=== PATIENT | male | born 1960 | race Caucasian/White ===

== ENCOUNTER 2019-06-06 15:16 | Inpatient (IN) | payer MEDICARE ==
[~2019-06-06] VITALS: Ht 177.8 cm; Wt 83.6 kg
--- NOTE | ~2019-06-06 | HEMODYNAMI ---
PATIENT:SIM LOPEZ JR MEDICAL RECORD: [id number] : 62 [facility] [id number] ADMISSION DATE: 06/06/19 Generatedon:06/23/201910:10 Patient name: SIM LOPEZ Patient #: [id number] SSN: DO B: 1960 Date of study: 06/23/2019 Page: Of Hemodynamic Procedure Report Patient Data Patient Demographics Procedure consent was obtained First Name: SIM Gender: Male Last Name: JESSICA Suffix: Patient #: [id number] : 1960 Age: 59 year(s) Accession #: Race: Unknown [id number] Additional ID: [id number] Contact details Address: [place] [address] State: [place] City: [place] Zip code: [address] Past Medical History Allergies Allergen Reaction Date Comments Reported Sulfa drugs 06/08/2019 Sulfa drugs 06/16/2019 Admission Admission Data Admission Date: 06/06/2019 Admission Time: 16:57 Room #: [facility] Height (in.): 70 BSA: 1.9 (m2) Height (cm.): 177.8 BMI: 22.96 (kg/m2) Weight (lbs.): 160 Weight (kg.): 72.57 Procedure Procedure Types Cath Procedure Peripheral Cath Diagnostic Procedure Wood Tool Maker Peripheral Procedures Nephro Nephrostomy Tube Exchange Procedure Description Procedure Date Procedure Date: 06/23/2019 Procedure Start Time: 9:42 Procedure Staff Name Function Sim Sifuentes MD Performing Physician Reshma Connors RT Soil Sampler Denice Fuentes RN Nurse Ric Chawla RT Scrub Procedure Data Cath Procedure Fluoroscopy Diagnostic fluoroscopy Total fluoroscopy Time: 4.9 time: 4.9 min min Diagnostic fluoroscopy Total fluoroscopy dose: 63 dose: 63 mGy mGy Contrast Material Contrast Material Type Amount (ml) Isovue 300 30 Diagnostic catheters Device Type Used For End Catheter Placement Merit Impress KA 2 5Fr 40CM catheter ([id number]) Procedure Medications Medication Administration Route Dosage unlisted medication 1 Hemodynamics Rest BSA: 1.9 (m2) O2 Consumption: Estimated: 214.3 (ml/min) O2 Consumption indexed: Estimated:112.79 (ml/min/m) Heart Rate: 56 (bpm) Snapshots Pre Cath Intra NCS Post Cath Vital Signs Time Heart Resp SPO2 etCO2 NIBP Rhythm Pain Sedation Rate (ipm) (%) (mmHg) (mmHg) Status Level (bpm) 9:35:22 24 99 32.4 93/55(69) NSR 0 (11) 10(A) , No pain 9:39:23 10 31.7 87/52(66) NSR 0 (11) 10(A) , No pain 9:43:23 55 11 30.9 86/47(63) NSR 0 (11) 10(A) , No pain 9:47:23 57 12 30.9 76/46(55) NSR 0 (11) 10(A) , No pain 9:50:52 56 12 30.9 78/49(61) NSR 0 (11) 10(A) , No pain 9:54:06 56 12 30.2 79/48(59) NSR 0 (11) 10(A) , No pain 9:58:03 10 100 30.2 80/47(60) NSR 0 (11) 10(A) , No pain 10:02:01 11 29.4 79/47(57) NSR 0 (11) 10(A) , No pain 10:05:55 52 10 29.4 85/45(63) NSR 0 (11) 10(A) , No pain 10:09:54 53 10 30.2 86/45(66) NSR 0 (11) 10(A) , No pain Medications Time Medication Route Dose Verified Delivered Reason Notes Effectivene ss by by 9:40:07 cefepime ivpb 1gm Sim Fuentes RN physician Procedure Log Time Note 8:38:21 Patient Height : 70 inches 8:38:21 Patient Weight : 160 lbs 9:10:39 Time tracking: Regular hours (M-F 7:00 - 5:00) 9:10:54 Plan of Care:Hemodynamics will remain stable., Cardiac rhythm will remain stable., Comfort level will be maintained., Respiratory function will remain adequate., Patient/ family verbilizes understanding of procedure., Procedure tolerated without complication., Recovers from procedure without complications.. 9:11:01 Patient received from Med/Surg to IR Alert and oriented. Tansferred to table in Prone position. 9:11:10 Signed procedure consent form obtained from guardian. 9:11:20 H&P Date Dictated: 06/23/2019 Within 30 days and on chart.. 9:11:29 - 9:11:32 ----Pre-sedation anethsthesia assessment.----SEE ANESTHESIA NOTES FOR MONITORING OF PATIENT DURING PROCEDURE 9:12:04 Use device set IR Diagnostic 9:12:08 Tegaderm 4 x 4 (1626W) opened to sterile field. 9:12:09 Sterile Angiographic Pack opened to sterile field. 9:12:09 Bag Decanter (2002S) opened to sterile field. 9:12:45 SARAHI .035 15cm wire ([id number]) opened to sterile field. 9:12:46 STOPCOCK 3-Way Large Bore ([id number]) opened to sterile field. 9:13:05 - 9:34:22 Vital chart was started 9:40:07 cefepime 1gm ivpb was administered by Denice Fuentes RN; Per physician; Verbal order read back and verified. 9:41:41 ECG and BP/O2 sat monitors applied to patient. 9:41:42 Baseline sample Acquired. 9:41:44 Full Disclosure recording started 9:41:45 - 9:41:50 Physician arrived 9:41:50 --------ALL STOP TIME OUT------ 9:41:52 Final Timeout: patient, procedure, and site verified with staff and physician. All members of the team are in agreement. 9:42:09 Fire Safety Assessment: A--An alcohol-based skin anteseptic being used preoperatively., C--Open oxygen or nitrous oxide is being used. 9:42:16 Procedure started. 9:42:27 Local anesthetic to Left Renal area with Lidocaine 1% by Sim Sifuentes MD.INITIAL ACCESS ONLY 9:47:35 ROADRUNNER .035 260 glide wire (F68138) opened to sterile field. 9:53:12 GLIDE WIRE GOLD .018 (SG6082) opened to sterile field. 9:53:26 A BlackStratus KA 2 5Fr 40CM catheter (30932MV0) was advanced over the wire and used for . 9:54:51 COPILOT Valve Control (1580461) opened to sterile field. 9:57:47 10FR Nephroureterostomy Stent (W56090) opened to sterile field and placed. 9:58:14 BAG, DRAINAGE EMPTY 600ML W/EMMA (MFH631) opened to sterile field. 10:05:40 Procedure ended.(Physican Out) 10:05:52 Fluoroscopy time 04.90 minutes. 10:05:57 Fluoroscopy dose: 63 mGy 10:05:57 Flurop Dose total: 63 10:06:24 Contrast amount:Isovue 300 30ml. 10:06:35 Procedure and supply charges have been captured, reviewed, submitted an d are correct. 10:09:52 Report given to Med/Surg. 10:10:19 Vital chart was stopped Device Usage Item Name Manufacture Quantity Catalog Hospital Part Current M inimal Lot# / Number Charge Number Stock Stock Serial# Code Tegaderm 4 x 4 3M 1 [id number] 976761 232432 5 (1626W) Sterile Cardinal 1 [id number] 436104 348274 5 Angiographic Pack Health Bag Decanter Microtek 1 498768 43107 192188 5 () [employer] SARAHI .035 15cm Cook Medical 1 E16866 733004 580573 5 wire (V31262) STOPCOCK 3-Way Cook Medical 1 E68190 670000 5779 561229 5 [id number] Large Bore (G56951) ROADRUNNER .035 Cook Medical 1 V75143 500614 614549 567577 5 260 glide wire (J86281) GLIDE WIRE GOLD Terumo 1 EM1606 414869 386653 5 199952 .018 (BF4387) Merit Impress KA 2 Merit 1 [id number] 389352 551599 5 5Fr 40CM catheter Medical (51956CT1) COPILOT Valve Potts 1 4232338 675059 107370 365813 5 Control (1468398) Vascular 10FR Cook Medical 1 H06283 070594 591189 345773 5 Nephroureterostomy Stent (P47419) BAG, DRAINAGE Merit 1 NPD843 646212 286704 805622 5 EMPTY 600ML W/EMMA Medical (RUV413) Signature Audit [place] Stage Time Signature Unsigned Intra-Procedure 06/23/2019 Reshma Connors 10:10:15 AM RT(R) [facility] [address] [facility] [place] [address]
--- NOTE | ~2019-06-06 | HEMODYNAMI ---
PATIENT:SIM LOPEZ JR MEDICAL RECORD: [id number] : 62 [facility] AD[facility] DATE: 06/06/19 Generatedon:06/08/201914:09 Patient name: SIM LOPEZ Patient #: [id number] SSN: DO B: 1960 Date of study: 06/08/2019 Page: Of Hemodynamic Procedure Report Patient Data Patient Demographics Procedure consent was obtained First Name: SIM Gender: Male Last Name: JESSICA Suffix: Patient #: [id number] : 1960 Age: 59 year(s) Accession #: Race: Unknown [id number] Additional ID: [id number] Contact details Address: [place] [address] State: [place] City: [place] Zip code: [address] Past Medical History Allergies Allergen Reaction Date Comments Reported Sulfa drugs 06/08/2019 Admission Admission Data Admission Date: 06/06/2019 Admission Time: 16:57 Room #: [facility] Height (in.): 70 BSA: 1.9 (m2) Height (cm.): 177.8 BMI: 22.96 (kg/m2) Weight (lbs.): 160 Weight (kg.): 72.57 Procedure Procedure Types Cath Procedure Peripheral Cath Diagnostic Procedure Living Skills Advisor Peripheral Procedures Nephro Nephrostomy Tubes Procedure Description Procedure Date Procedure Date: 06/08/2019 Procedure Start Time: 13:06 Procedure Staff Name Function Sim Sifuentes MD Performing Physician Reshma Connors RT Division Merchandise Manager Geovanna Escobar RN Nurse Denice Fuentes RN Nurse Ric Chawla RT Scrub Jose Foster Jr IT PROGRAM AUDITOR Additional personnel Procedure Data Cath Procedure Fluoroscopy Diagnostic fluoroscopy Total fluoroscopy Time: time: 15.9 min 15.9 min Diagnostic fluoroscopy Total fluoroscopy dose: 325 dose: 325 mGy mGy Contrast Material Contrast Material Type Amount (ml) Isovue 300 55 Diagnostic catheters Device Type Used For End Catheter Placement Merit Impress KA 2 5Fr 40CM catheter ([id number]) Hemodynamics Rest BSA: 1.9 (m2) O2 Consumption: Estimated: 258.4 (ml/min) O2 Consumption indexed: Estimated:136 (ml/min/m) Pre Cath Intra NCS Post Cath Procedure Log Time Note 12:13:13 Patient Height : 70 inches 12:13:17 Patient Weight : 160 lbs 12:13:56 Use device set IR Diagnostic 12:14:51 KIT, INTRODUCER ACCUSTICK II W/C ([id number]) opened to sterile field. 12:14:52 BAG, DRAINAGE EMPTY 600ML W/EMMA (MLE613) opened to sterile field. 12:14:53 BAG, DRAINAGE EMPTY 600ML W/EMMA (VAT492) opened to sterile field. 12:14:53 STOPCOCK 3-Way Large Bore (Q31960) opened to sterile field. 12:14:54 STOPCOCK 3-Way Large Bore (R15334) opened to sterile field. 12:14:55 Tegaderm 4 x 4 (1626W) opened to sterile field. 12:14:56 Sterile Angiographic Pack opened to sterile field. 12:14:57 Bag Decanter (2002S) opened to sterile field. 12:15:10 - 12:38:40 Time tracking: Regular hours (M-F 7:00 - 5:00) 12:50:24 Plan of Care:Hemodynamics will remain stable., Cardiac rhythm will remain stable., Comfort level will be maintained., Respiratory function will remain adequate., Patient/ family verbilizes understanding of procedure., Procedure tolerated without complication., Recovers from procedure without complications.. 12:50:31 Patient received from ICU to IR On ventilator. Tansferred to table in Prone position. 12:50:37 Signed procedure consent form obtained from verbally. 12:50:49 H&P Date Dictated: 06/08/2019 Within 30 days and on chart.. 12:50:55 Family unavailable. 12:51:01 Patient NPO since Midnight. 12:51:20 Patient allergic to Sulfa drugs 12:52:00 Is the patient allergic to Iodine/contrast media? No. 12:52:03 - 12:52:04 ----Pre-sedation anethsthesia assessment.----SEE ANESTHESIA NOTES FOR MONITORING OF PATIENT DURING PROCEDURE. GENERAL ANESTHESIA 12:53:08 - 12:53:22 Bilateral Renal was prepped with chlora-prep and draped in sterile fashion. 12:53:34 Fire Safety Assessment: A--An alcohol-based skin anteseptic being used preoperatively., C--Open oxygen or nitrous oxide is being used. 12:58:51 CHIBA 20 X 15 needle opened to sterile field. 12:59:11 5) <15 or on dialysis Very severe, or end stage kidney failure. 13:04:07 Physician arrived 13:04:08 --------ALL STOP TIME OUT------ 13:04:09 Final Timeout: patient, procedure, and site verified with staff and physician. All members of the team are in agreement. 13:06:06 Procedure started. 13:06:06 Full Disclosure recording started 13:06:24 Local anesthetic to Left Renal area with Lidocaine 1% by Sim Sifuentes MD.INITIAL ACCESS ONLY 13:29:00 Abscession 8Fr drainage catheter ([id number]) opened to sterile field. 13:54:46 GLIDE WIRE ANGLE 180cm (SI4965) opened to sterile field. 13:54:49 A Merit Star.me KA 2 5Fr 40CM catheter (57696YB5) was advanced over the wire and used for . 13:57:58 NITINOL .018 80cm wire (F935848) opened to sterile field. 13:58:05 Jones 180 wire (M02913) opened to sterile field. 13:58:38 Abscession 8Fr drainage catheter (52184027) opened to sterile field. 14:00:36 SUTURE ETHILON 2-0 BLK MONO FS opened to sterile field. 14:00:37 SUTURE ETHILON 2-0 BLK MONO FS opened to sterile field. 14:04:56 Procedure ended.(Physican Out) 14:05:35 Fluoroscopy time 15.90 minutes. 14:05:40 Fluoroscopy dose: 325 mGy 14:05:40 Flurop Dose total: 325 14:06:11 Contrast amount:Isovue 300 55ml. 14:08:19 Procedure and supply charges have been captured, reviewed, submitted an d are correct. 14:08:29 Report given to ICU. Device Usage Item Name Manufacture Quantity Catalog Hospital Part Current Minima l Lot# / Number Charge Number Stock Stock Serial# Code KIT, [place] 1 [id number] 561425 492670 5 INTRODUCER Scientific ACCUSTICK II W/C ([id number]) BAG, [place] 2 GGL092 557290 246420 717637 5 [id number] DRAINAGE EMPTY 600ML W/EMMA (UDY740) STOPCOCK [facility] 2 Y39249 978814 3134 845851 [id number] 3-Way Large [id number] Bore (D14919) Tegaderm 4 x 3M 1 1626W 074564 099773 976238 5 4 (1626W) Sterile Cardinal 1 [id number] 052882 523288 5 Angiographic Health Pack Bag Decanter Microtek 1 2001S 994017 21201 144199 5 (2001S) Medical Inc. CHIBA 20 X Cook Medical 1 X07460 318928 835893 5 0376386 15 needle Abscession Angiodynamics 1 [id number] 604982 186605 186588 5 8Fr drainage catheter (67274322) GLIDE WIRE Terumo 1 CW8809 018528 974692 417621 5 ANGLE 180cm (QX6945) [facility] Medical 1 [id number] 365770 333542 5 Impress KA 2 5Fr 40CM catheter (21979AU5) NITINOL .018 Medtronic 1 G800014 609839 658284 5 80cm wire (E919735) Jones 180 [facility] 1 E83644 861776 546356 1411071 5 [id number] wire (J10011) SUTURE Ethicon 2 664H 866541 419551 5 ETHILON 2-0 BLK MONO FS Signature Audit Early Stage Time Signature Unsigned Intra-Procedure 06/08/2019 Reshma Connors 2:09:49 PM RT(R) [facility] [address] [id number]
--- NOTE | ~2019-06-06 | HEMODYNAMI ---
PATIENT:SIM LOPEZ JR MEDICAL RECORD: [id number] : 62 [facility] DATE: 06/06/19 Generatedon:06/12/201911:29 Patient name: SIM LOPEZ Patient #: [id number] SSN: DO B: 1960 Date of study: 06/12/2019 Page: Of Hemodynamic Procedure Report Patient Data Patient Demographics Procedure consent was obtained First Name: SIM Gender: Male Last Name: JESSICA Suffix: Patient #: [id number] : 1960 Age: 59 year(s) Accession #: Race: Unknown [id number] Additional ID: [id number] Contact details Address: [place] [address] State: [place] City: [place] Zip code: [address] Past Medical History Allergies Allergen Reaction Date Comments Reported Sulfa drugs 06/08/2019 Admission Admission Data Admission Date: 06/06/2019 Admission Time: 16:57 Room #: 2302 Height (in.): 70 BSA: 1.9 (m2) Height (cm.): 177.8 BMI: 22.96 (kg/m2) Weight (lbs.): 160 Weight (kg.): 72.57 Procedure Procedure Types Cath Procedure Peripheral Cath Diagnostic Procedure Nephro Procedure Description Procedure Date Procedure Date: 06/12/2019 Procedure Start Time: 10:43 Procedure Staff Name Function Ric Chawla RT Monitor Denice Fuentes RN Nurse Geovanna Escobar RN Nurse JOEY FREEMAN RT Scrub Dustin Stein MD Performing Physician Deedee Starks CRNA Additional personnel Procedure Data Cath Procedure Fluoroscopy Diagnostic fluoroscopy Total fluoroscopy Time: 9 time: 9 min min Diagnostic fluoroscopy Total fluoroscopy dose: 240 dose: 240 mGy mGy Contrast Material Contrast Material Type Amount (ml) Isovue 300 20 Procedure Medications Medication Administration Route Dosage unlisted medication 1 Heparin Flush Bag added to field 1 bags (1000units/500ml NS) Lidocaine 1% added to field 20 Refer to Anesthesia Notes for Sedation Medications Hemodynamics Rest BSA: 1.9 (m2) O2 Consumption: Estimated: 258.4 (ml/min) O2 Consumption indexed: Estimated:136 (ml/min/m) Pre Cath Intra NCS Post Cath Medications Time Medication Route Dose Verified Delivered Reason Notes Effe ctiveness by by 10:31:13 cefepime ivpb 1gm Per physician 10:36:40 Heparin Flush added 1 Dustin Chan used for Bag to bags Sarita Stein MD procedure (1000units/500ml field NS) 10:36:52 Lidocaine 1% added 20ml Dustin Chan for local to vial Sarita Stein MD anesthetic field MD 10:37:08 Refer to Dustin Chan Anesthesia Notes Sarita Stein MD for Sedation MD Medications Procedure Log Time Note 9:43:45 Patient Height : 70 inches 9:43:45 Patient Weight : 160 lbs 9:58:57 Denice Fuentes RN sent for patient. Start room use. 9:58:59 Time tracking: Regular hours (M-F 7:00 - 5:00) 9:59:04 Plan of Care:Hemodynamics will remain stable., Cardiac rhythm will remain stable., Comfort level will be maintained., Respiratory function will remain adequate., Patient/ family verbilizes understanding of procedure., Procedure tolerated without complication., Recovers from procedure without complications.. 9:59:16 Deedee Starks CRNA present and monitoring patient for TIVA. 9:59:17 Patient received from ICU to IR Alert and oriented. Tansferred to table in Supine position. 9:59:26 Signed procedure consent form obtained from verbally. 9:59:28 Warm blankets applied, and tylor hugger turned on for patient comfort. 9:59:29 Correct patient and procedure confirmed by team. 9:59:30 ECG and BP/O2 sat monitors applied to patient. 9:59:33 - 10:01:17 SEE ANESTHESIA NOTE FOR PRE PROCEDURE ANESTHESIA 10:09:16 Use device set IR Diagnostic 10:09:18 Bag Decanter (2002S) opened to sterile field. 10:09:19 Sterile Angiographic Pack opened to sterile field. 10:09:19 Tegaderm 4 x 4 (1626W) opened to sterile field. 10:09:39 Unable to provide pre-op teaching due to educational barrier. PT ON GEOFFREY T 10:16:22 Alarms reviewed by R. N. 10:16:22 Sharps counted by scrub and verified by R.N. 10:16:30 Right Renal was prepped with chlora-prep and draped in sterile fashion. 10:31:13 cefepime 1gm ivpb was administered by ; Per physician; Verbal order sugey d back and verified. 10:36:40 Heparin Flush Bag (1000units/500ml NS) 1 bags added to field was administered by Dustin Stein MD; used for procedure; Verbal order read back and verified. 10:36:52 Lidocaine 1% 20ml vial added to field was administered by Dustin Stein MD; for local anesthetic; Verbal order read back and verified. 10:37:08 Refer to Anesthesia Notes for Sedation Medications was administered by Dustin Stein MD; ; Verbal order read back and verified. 10:41:24 Alarms reviewed by R. N. 10:41:26 Physician arrived 10:41:27 --------ALL STOP TIME OUT------ 10:41:28 Final Timeout: patient, procedure, and site verified with staff and physician. All members of the team are in agreement. 10:41:38 Lumbar site verified by team. 10:41:48 Fire Safety Assessment: A--An alcohol-based skin anteseptic being used preoperatively., C--Open oxygen or nitrous oxide is being used. 10:42:36 Sedation plan: General Anesthesia Medication:General Anesthesia 10:42:50 4) 15-29 [place]ley reduced kidney function. 10:43:17 Maximum allowable contrast dose (3.7 X eGFR X 0.75)63.82 ml. 10:43:29 Procedure started. 10:43:29 Full Disclosure recording started 10:43:43 Local anesthetic to Right Renal area with Lidocaine 1% by Ric Chawla RT (R) (CV).INITIAL ACCESS ONLY 10:44:31 KIT, INTRODUCER ACCUSTICK II W/C ([id number]) opened to sterile field. 10:44:32 CHIBA 22 X 15 needle opened to sterile field. 10:47:12 NITINOL .018 80cm wire (S809725) opened to sterile field. 10:47:13 BAG, DRAINAGE EMPTY 600ML W/EMMA (MLR367) opened to sterile field. 10:57:09 KIT, INTRODUCER ACCUSTICK II W/C ([id number]) opened to sterile field. 11:16:34 GLIDE CATHETER 5FR ANGLED 65cm (CG507) opened to sterile field. 11:23:18 Procedure ended.(Physican Out) 11:26:55 Fluoroscopy time 09.00 minutes. 11:26:58 Fluoroscopy dose: 240 mGy 11:26:58 Flurop Dose total: 240 11:27:05 Contrast amount:Isovue 300 20ml. 11:27:16 Post Lumbar area:stable 11:27:41 SEE ANESTHESIA NOTE FOR POST PROCEDURE ANESTHESIA 11:28:31 Procedure and supply charges have been captured, reviewed, submitted an d are correct. 11:28:36 Report given to ICU. 11:28:39 Patient transfered to ICU with Bed. Device Usage Item Name Manufacture Quantity Catalog Hospital Part Current Minimal Lot# / Number Charge Number Stock Stock Serial# Code Bag Decanter Microtek 1 [id number] 64665 845888 5 () Medical Inc. Sterile Cardinal 1 [id number] 591680 262673 5 Angiographic Health Pack Tegaderm 4 x 3M 1 1626W 537321 274652 655894 5 4 (1626W) KIT, [place] 2 [id number] 961649 411461 403975 5 [id number] INTRODUCER Scientific [id number] ACCUSTICK II W/C ([id number]) CHIBA 22 X Cook Medical 1 I14984 792348 630748 5 [id number] 15 needle NITINOL .018 Medtronic 1 Q973178 968651 181056 5 [id number] 80cm wire (O441029) BAG, Merit 1 OWQ729 033668 088413 924059 5 DRAINAGE Medical EMPTY 600ML W/EMMA (WIL330) GLIDE Terumo 1 CG507 274392 561368 5 CATHETER 5FR ANGLED 65cm (CG507) Signature Audit [place] Stage Time Signature Unsigned Intra-Procedure 06/12/2019 Ric 11:29:02 AM [place] RT (R) (CV) [facility] [address] [place] [address]
--- NOTE | ~2019-06-06 | HEMODYNAMI ---
PATIENT:SIM LOPEZ JR MEDICAL RECORD: [id number] : 62 LOCATION:[facility] [place].2213 ADMISSION DATE: 06/06/19 Generatedon:06/16/201911:09 Patient name: SIM LOPEZ Patient #: [id number] SSN: DO B: 1960 Date of study: 06/16/2019 Page: Of Hemodynamic Procedure Report Patient Data Patient Demographics Procedure consent was obtained First Name: SIM Gender: Male Last Name: JESSICA Suffix: Patient #: [id number] : 1960 Age: 59 year(s) Accession #: Race: Unknown [id number] Additional ID: [id number] Contact details Address: [address] [address] State: [place] City: [place] Zip code: [address] Past Medical History Allergies Allergen Reaction Date Comments Reported Sulfa drugs 06/08/2019 Sulfa drugs 06/16/2019 Admission Admission Data Admission Date: 06/06/2019 Admission Time: 16:57 Room #: [facility] Height (in.): 70 BSA: 1.9 (m2) Height (cm.): 177.8 BMI: 22.96 (kg/m2) Weight (lbs.): 160 Weight (kg.): 72.57 Procedure Procedure Types Cath Procedure Peripheral Cath Diagnostic Procedure Nephro Nephrostomy Tubes Procedure Description Procedure Date Procedure Date: 06/16/2019 Procedure Start Time: 10:56 Procedure End Time: 11:09 Procedure Staff Name Function Rogerio Osorio MD Performing Physician JOEY FREEMAN RT Monitor Ric Chawla RT Scrub Denice Fuentes RN Nurse Arcenio Madden MD Additional personnel Procedure Data Cath Procedure Fluoroscopy Diagnostic fluoroscopy Total fluoroscopy Time: 2.1 time: 2.1 min min Contrast Material Contrast Material Type Amount (ml) Isovue 300 15 Procedure Medications Medication Administration Route Dosage Heparin Flush Bag added to field 2 bags (1000units/500ml NS) Lidocaine 1% added to field 20 Refer to Anesthesia Notes for Sedation Medications Hemodynamics Rest BSA: 1.9 (m2) O2 Consumption: Estimated: 258.4 (ml/min) O2 Consumption indexed: Estimated:136 (ml/min/m) Pre Cath Intra NCS Post Cath Medications Time Medication Route Dose Verified Delivered Reason Notes Effe ctiveness by by 10:46:01 Heparin Flush added 2 Rogerio Beatty used for Bag to bags Osorio Osorio procedure (1000units/500ml field MD SPENCER NS) 10:46:19 Lidocaine 1% added 20ml Rogerio Beatty for local to vial Osorio Osorio anesthetic field MD SPENCER 10:46:36 Refer to Rogerio Beatty Anesthesia Notes Jo Osorio for Sedation MD SPENCER Medications Procedure Log Time Note 9:03:01 Patient Height : 70 inches 9:03:01 Patient Weight : 160 lbs 10:11:49 Denice Fuentes RN sent for patient. Start room use. 10:11:50 Time tracking: Regular hours (M-F 7:00 - 5:00) 10:11:54 Plan of Care:Hemodynamics will remain stable., Cardiac rhythm will remain stable., Comfort level will be maintained., Respiratory function will remain adequate., Patient/ family verbilizes understanding of procedure., Procedure tolerated without complication., Recovers from procedure without complications.. 10:12:21 Signed procedure consent form obtained from spouse. 10:12:22 Warm blankets applied, and tylor hugger turned on for patient comfort. 10:12:23 Correct patient and procedure confirmed by team. 10:12:24 ECG and BP/O2 sat monitors applied to patient. 10:12:45 - 10:12:50 H&P Date Dictated: 06/16/2019 Within 30 days and on chart.. 10:12:51 Pre-procedure instructions explained to patient. 10:12:52 Pre-op teaching completed and patient verbalized understanding. 10:12:54 Family in patients room. 10:12:56 Patient NPO since Midnight. 10:13:08 Patient allergic to Sulfa drugs 10:14:45 ----See anethesia note for Pre-sedation anethsthesia assessment.---- 10:15:13 Arcenio Madden MD present and monitoring patient for TIVA. 10:46:01 Heparin Flush Bag (1000units/500ml NS) 2 bags added to field was administered by Rogerio Osorio MD; used for procedure; Verbal order read back and verified. 10:46:19 Lidocaine 1% 20ml vial added to field was administered by Rogerio Osorio MD; for local anesthetic; Verbal order read back and verified. 10:46:36 Refer to Anesthesia Notes for Sedation Medications was administered by Rogerio Osorio MD; ; Verbal order read back and verified. 10:53:03 Left Renal was prepped with chlora-prep and draped in sterile fashion. 10:53:05 Alarms reviewed by R. N. 10:53:06 Sharps counted by scrub and verified by R.N. 10:53:07 Physician arrived 10:54:21 --------ALL STOP TIME OUT------ 10:54:22 Final Timeout: patient, procedure, and site verified with staff and physician. All members of the team are in agreement. 10:54:40 Left Renal site verified by team. 10:54:54 Fire Safety Assessment: A--An alcohol-based skin anteseptic being used preoperatively., C--Open oxygen or nitrous oxide is being used. 10:55:59 Procedure started. 10:55:59 Full Disclosure recording started 10:56:18 Local anesthetic to left renal with Lidocaine 1% by Rogerio Osorio MD.INITIAL ACCESS ONLY 10:56:35 - 10:56:38 Use device set IR Diagnostic 10:56:39 Bag Decanter () opened to sterile field. 10:56:39 Sterile Angiographic Pack opened to sterile field. 10:56:40 Tegaderm 4 x 4 (1626W) opened to sterile field. 10:56:45 KIT, INTRODUCER ACCUSTICK II W/C ([id number]) opened to sterile field. 10:58:50 [facility] .035 145 glide wire ([id number]) opened to sterile field. 10:59:49 SUTURE ETHILON 2-0 BLK MONO FS opened to sterile field. 11:02:21 AMPLATZ Super stiff 180cm wire ([id number]) opened to sterile field. 11:02:22 Abscession 10 FR drainage catheter ([id number]) opened to sterile field. 11:05:31 Procedure ended.(Physican Out) 11:05:44 Fluoroscopy time 02.10 minutes. 11:05:47 Dose Area Product 15 mGy/cm. 11:05:50 Contrast amount:Isovue 300 15ml. 11:05:52 Sharps counted by scrub and verified by R.N. 11:05:53 Insertion/operative site no bleeding no hematoma. 11:06:08 Post Left Renal area:stable, clean and dry. 10 irish abscession drainage catheter in patients left renal area. dressed with stat lock and 4x4 and tegaderm. 11:07:19 Procedure and supply charges have been captured, reviewed, submitted an d are correct. 11:07:37 See physician's report for complete and final results. 11:07:42 Patient transfered to Med/Surg with Bed. 11:09:24 Procedure ended. 11:09:24 Full Disclosure recording stopped 11:09:37 End room use (Document Last) Device Usage Item Name Manufacture Quantity Catalog Hospital Part Current Minima l Lot# / Number Charge Number Stock Stock Serial# Code Bag Decanter Microtek 1 [id number] [id number] 5 () Medical Inc. Sterile Cardinal 1 [id number] 224100 5 Angiographic Health Pack Tegaderm 4 x 3M 1 1626W [id number] 135652 [id number] 5 4 (1626W) KIT, [place] 1 [id number] 044041 397855 097880 5 INTRODUCER Scientific ACCUSTICK II W/C ([id number]) [facility] 1 [id number] 166864 874240 5 .035 145 glide wire ([id number]) SUTURE Ethicon 1 664H 829452 251148 5 ETHILON 2-0 BLK MONO FS AMPLATZ [place] 1 [id number] 873043 106213 569620 5 Super stiff Scientific 180cm wire ([id number]) Abscession Angiodynamics 1 [id number] 271391 335050 709068 5 10 FR drainage catheter ([id number]) Signature Audit [place] Stage Time Signature Unsigned Intra-Procedure 06/16/2019 JOEY FREEMAN RT 11:09:51 AM (R) [facility] [address] [place] [address]
[2019-06-06 16:51] VITALS: BP 113/66
[2019-06-06 17:28] VITALS: BP 104/53
[2019-06-06 17:46] LABS: ANION GAP 10.5 mmol/L (8-16); CALCIUM 9.2 mg/dL (8.5-10.1); CARBON DIOXIDE 27.4 mmol/L (21.0-32.0); CREATININE - SERUM 3.7 mg/dL (0.6-1.3); MAGNESIUM - SERUM 3.3 mg/dL (1.8-2.4); POTASSIUM - SERUM 5.9 mmol/L (3.5-5.1)
--- NOTE | 2019-06-06 18:49 | NUR ---
REPORT CALLED TO NURSE [facility] 2
--- NOTE | 2019-06-06 19:15 | NUR ---
BEDSIDE SHIFT REPORT COMPLETED SHIFT ASSESSMENT COMPLETED SEE FLOWSHEET
--- NOTE | 2019-06-06 19:20 | NUR ---
PT ARRIVED TO FLOOR AT THIS TIME. NO SIGNS OF DISTRESS. DURING TRANSFER PT PIV TO [facility] WAS LOST. PT IS ALERT, BUT ABLE TO ACCESS ORIENTATION DUE TO PT NOT VERBALLY RESPONDING TO THIS NURSE. SUCTION SET UP AT BEDSIDE DUE TO PT COUGHING UP PHLEM. PT REFUSED TO LET THIS NURSE SUCTION, CLAMPING JAW CLOSED. PT DOSE NOT APPEAR TO BE IN PAIN. CL IN REACH, BED IN LOWEST POSITION.
[2019-06-06 19:38] VITALS: BMI 28.6
[2019-06-06 21:17] VITALS: BP 81/40
[2019-06-07] VITALS (16 sets, daily range): BP systolic 99–142; BP diastolic 58–91
[2019-06-07] MEDS ORDERED: NEURONTIN600 MG PO (04:54)
[2019-06-07] MEDS ORDERED: METHENAMINE HIPP1 GM PO (04:55)
[2019-06-07] MEDS ORDERED: OXYBUTYNIN CHLOR5 MG PO (04:56)
[2019-06-07] MEDS ORDERED: LIORESAL 10 MG10 MG PO (04:57)
[2019-06-07] MEDS ORDERED: TRAZODONE HCL150 MG PO (04:57)
[2019-06-07] MEDS ORDERED: SEROQUEL50 MG PO (04:59)
[2019-06-07] MEDS ORDERED: BUSPAR10 MG PO (04:59)
[2019-06-07] MEDS ORDERED: PERCOCET 5-3251 TAB PO (05:00)
--- NOTE | 2019-06-07 05:01 | NUR ---
PT MED REC WAS OBTAINED FROM PAPER CHART THAT WAS RECIEVED FROM [facility] DUE TO PT BEING LETHARGIC AND UNABLE TO ANSWER QUESTIONS.
[2019-06-07 07:07] LABS: BASOPHILS 0.1 % (0-2); EOSINOPHILS 2.5 % (0-7); HEMATOCRIT 20.5 % (42.0-54.0); IMMATURE GRANULOCYTES 0.2 % (0-5); LYMPHOCYTES 5.6 % (15-50); MCH 24.6 pg (26.0-34.0); MCHC 30.7 g/dL (31.0-37.0); MCV 80.1 fL (80.0-100.0); MEAN PLATELET VOLUME 9.4 fL (7.4-10.4); MONOCYTES 4.6 % (2-11); PLATELET COUNT 148 10x3/uL (130-400); RBC 2.56 10x6/uL (4.20-6.10); RDW 18.3 % (11.5-14.5); WBC 9.8 10x3/uL (4.8-10.8)
[2019-06-07 07:38] LABS: ALBUMIN 1.3 g/dL (3.4-5.0); ANION GAP 12.7 mmol/L (8-16); BILIRUBIN - TOTAL 0.23 mg/dL (0.2-1.3); CALCIUM 7.8 mg/dL (8.5-10.1); CARBON DIOXIDE 23.6 mmol/L (21.0-32.0); CREATININE - SERUM 3.9 mg/dL (0.6-1.3); MAGNESIUM - SERUM 2.8 mg/dL (1.8-2.4); POTASSIUM - SERUM 5.3 mmol/L (3.5-5.1); PROTEIN - SERUM 6.2 g/dL (6.4-8.2)
[2019-06-07 08:06] LABS: HEMOGLOBIN 6.3 g/dL (13.5-17.5)
--- NOTE | 2019-06-07 09:45 | NUR ---
PT ARRIVED TO ICU FROM FLOOR. VSS AND WNL. PT MAKING NOISES BUT NOT TALKING. BIPAP AT 100% AT THIS TIME, BED ALARM ON. CALL LIGHT WITHIN REACH, WILL CONT TO FOLLOW POC
--- NOTE | 2019-06-07 10:00 | NUR ---
20G PIV INSERTED TO LEFT FA X1 ATTEMPT. PT TOLERATED WELL. WILL CONT TO FOLLOW POC
--- NOTE | 2019-06-07 10:40 | NUR ---
PRETRANSUFSION VS OBTAINED. PRBC CHECKED WITH SECOND NURSE WITNESS. 1/2 UNIT PRBC STARTED. WILL CONT TO MONITOR
--- NOTE | 2019-06-07 10:55 | NUR ---
15 MIN POST INFUSION VS OBTAINED AND WNL. PT RESTING IN BED WITH NO SIGNS OF DISTRESS NOTED AT THIS TIME. BED ALARM ON. WILL CONT TO FOLLOW POC
[2019-06-07 11:49] LABS: % SATURATION 10 % (15-55); IRON 13 ug/dl (35-150); TOTAL IRON BIND CAPACITY 123 ug/dl (260-445); UNSAT IRON BIND CAPACITY 110 ug/dl (150-375)
--- NOTE | 2019-06-07 12:46 | NUR ---
HERE AND CHANGED OUT PT SUPRAPUBIC CATHETER AT BEDSIDE. PT OLD SUPRAPUBIC CATH WAS A 24FR. PLACED AN 18FR CATHETER. NURSE ASKED IF THIS WILL LEAK AND PER , "YES IT WILL. JUST PUT A DRESSING ON IT." PT TOLERATED CATHETER CHANGE WELL WITH NO COMPLICATIONS. VSS AND WNL. BED ALARM ON. CALL LIGHT WITHIN REACH, WILL CONT TO FOLLOW POC
--- NOTE | 2019-06-07 13:00 | NUR ---
1/2 UNIT PRBC COMPLETE. VS TAKEN AND WNL. BED ALARM ON. NO SIGNS OF DISTRESS NOTED. CALL LIGHT WITHIN REACH. WILL CONT TO FOLLOW POC
--- NOTE | 2019-06-07 13:25 | NUR ---
OBTAINED PRE TRANSFUSION VS AND PRBC CHECKED WITH SECOND NURSE WITNESS. 2/2 UNIT PRBC STARTED. WILL CONT TO FOLLOW POC
--- NOTE | 2019-06-07 13:40 | NUR ---
15 MIN POST INFUSION VS OBTAINED AND WNL. NO SIGNS OF DISTRESS NOTED. CALL LIGHT WITHIN REACH, BED ALARM ON, WILL CONT TO FOLLOW POC
--- NOTE | 2019-06-07 15:19 | NUR ---
Left hip 3cm x 4cm stage 1 pressure injury (nonblanchable) Right hip 2cm x 4cm nonblanchable stage 1 pressure injury Left buttock 3cm x 3cm Stage 2 pressure injury Left heel 4cm x 4cm unstageable pressure injury Right ankle 1cm x 1cm x eschar unstageable pressure injury Suprapubic cath. Incontinent of bowels. Wound care recommendations: -air overlay mattress (ordered) -Calmoseptine for redness related to moisture -Large Mepilex sacral to buttocks, small mepilex to hips, mepilex heel to both heels with heel protectors -turn/reposition q 2 hours Wound care will continue monitoring.
[2019-06-07 15:35] LABS: BILIRUBIN NEGATIVE (NEGATIVE); GLUCOSE NEGATIVE (NEGATIVE); KETONE NEGATIVE (NEGATIVE); NITRITE NEGATIVE (NEGATIVE); UROBILINOGEN NORMAL (NORMAL)
[2019-06-07 15:36] LABS: AMORPHOUS SEDIMENT >1+ /lpf (NONE SEEN); BACTERIA MANY /hpf (NEGATIVE); RED CELLS - URINE 0-5 /hpf (0-5)
--- NOTE | 2019-06-07 16:00 | NUR ---
2/2 UNIT PRBC COMPLETE. POST TRANSFUSION VS OBTAINED. BED ALARM ON. NO SIGNS OF DISTRESS NOTED. CALL LIGHT WITHIN REACH. WILL CONT TO FOLLOW POC
[2019-06-07 17:40] LABS: BASOPHILS 0.1 % (0-2); EOSINOPHILS 0.4 % (0-7); IMMATURE GRANULOCYTES 0.7 % (0-5); LYMPHOCYTES 6.2 % (15-50); MCH 26.1 pg (26.0-34.0); MCHC 32.3 g/dL (31.0-37.0); MCV 80.8 fL (80.0-100.0); MEAN PLATELET VOLUME 9.7 fL (7.4-10.4); MONOCYTES 4.2 % (2-11); NEUTROPHILS 88.4 % (40-80); PLATELET COUNT 135 10x3/uL (130-400); RDW 17.8 % (11.5-14.5)
[2019-06-07 17:53] LABS: HEMATOCRIT 29.1 % (42.0-54.0); HEMOGLOBIN 9.4 g/dL (13.5-17.5); WBC 13.9 10x3/uL (4.8-10.8)
[2019-06-07 17:58] LABS: ANION GAP 15.2 mmol/L (8-16); CALCIUM 8.1 mg/dL (8.5-10.1); CARBON DIOXIDE 23.2 mmol/L (21.0-32.0); CREATININE - SERUM 4.1 mg/dL (0.6-1.3)
[2019-06-07 18:09] LABS: POTASSIUM - SERUM 6.4 mmol/L (3.5-5.1)
--- NOTE | 2019-06-07 19:30 | NUR ---
SHIFT ASSESSMENT COMPLETED SEE FLOWSHEET, PT OPENS EYES TO STERNAL RUB ONLY UNABLE TO SPEAK AT THIS TIME, MOVES LEGS SLIGHTLY DOES NOT FOLLOW COMMANDS, PUPILS EVEN, EQUAL SLUGGISH REACTION. WILL CONTINUE TO CLOSELY MONITOR
--- NOTE | 2019-06-07 19:30 | NUR ---
PAGED DUE TO PT CRITICAL HIGH POTASSIUM. NEW ORDERS RECIEVED AND ENTERED INTO COMP. PER , OBTAIN ABG 5-10 MINS POST MED ADMINISTRATION.
--- NOTE | 2019-06-07 20:45 | NUR ---
PT TO CT WITH RESPIRATORY -
--- NOTE | 2019-06-07 22:10 | NUR ---
NEW ORDERS RECEIVED FOR HEAD CT
--- NOTE | 2019-06-07 23:30 | NUR ---
REASSESSMENT COMPLETED SEE FLOWSHEET
[2019-06-08] VITALS (29 sets, daily range): BP systolic 88–149; BP diastolic 59–93; Ht 177.8 cm; Wt 83.6 kg
[2019-06-08 00:29] LABS: UDS - AMPHET NEGATIVE QUAL (NEGATIVE); UDS - BARB NEGATIVE QUAL (NEGATIVE); UDS - BENZO NEGATIVE QUAL (NEGATIVE); UDS - COCAINE NEGATIVE QUAL (NEGATIVE); UDS - OPIATE NEGATIVE QUAL (NEGATIVE); UDS - PCP NEGATIVE QUAL (NEGATIVE); UDS - THC NEGATIVE QUAL (NEGATIVE)
--- NOTE | 2019-06-08 01:00 | NUR ---
PT PUPILS ARE DILATED, OPENS EYES TO STERNAL RUB ONLY MOVES LEGS SOME. WILL CONTINUE TO MONITOR
--- NOTE | 2019-06-08 01:35 | NUR ---
CALLED RADIOLOGY REGARDING CT REPORT
[2019-06-08 04:18] LABS: BASOPHILS 0.1 % (0-2); EOSINOPHILS 0 % (0-7); HEMATOCRIT 27.7 % (42.0-54.0); HEMOGLOBIN 8.9 g/dL (13.5-17.5); IMMATURE GRANULOCYTES 0.1 % (0-5); LYMPHOCYTES 2.6 % (15-50); MCH 25.6 pg (26.0-34.0); MCHC 32.1 g/dL (31.0-37.0); MCV 79.6 fL (80.0-100.0); MEAN PLATELET VOLUME 9.7 fL (7.4-10.4); MONOCYTES 3.4 % (2-11); NEUTROPHILS 93.8 % (40-80); PLATELET COUNT 151 10x3/uL (130-400); RBC 3.48 10x6/uL (4.20-6.10); WBC 13.7 10x3/uL (4.8-10.8)
[2019-06-08 04:41] LABS: ALBUMIN 1.4 g/dL (3.4-5.0); ANION GAP 16.4 mmol/L (8-16); BILIRUBIN - TOTAL 0.3 mg/dL (0.2-1.3); CALCIUM 8.8 mg/dL (8.5-10.1); CARBON DIOXIDE 23.4 mmol/L (21.0-32.0); CREATININE - SERUM 4.3 mg/dL (0.6-1.3); PHOSPHOROUS 6.9 mg/dL (2.5-4.9); POTASSIUM - SERUM 5.8 mmol/L (3.5-5.1); PROTEIN - SERUM 6.7 g/dL (6.4-8.2)
--- NOTE | 2019-06-08 04:45 | NUR ---
PT RECEIVED CHG BATH AIR OVERLAY PLACED UNDER PATIENT - PT OPENING EYES AT THIS TIME VSS
--- NOTE | 2019-06-08 06:32 | NUR ---
PT AWAKE, UNABLE TO SPEAK BUT MAKING SOME SOUNDS WILL CONTINUE TO MONITOR
--- NOTE | 2019-06-08 07:00 | NUR ---
PT RESTING IN BED,VSS AND WNL. BED ALARM ON. NO SIGN OF DISTRESS NOTED. CORREA CATHETER DRAINING AGUILERA URINE. WILL CONT TO FOLLOW POC
--- NOTE | 2019-06-08 09:04 | NUR ---
PT RESTING IN BED, VSS AND WNL. PT REPOSITIONED. NO SIGNS OF DISTRESS NOTED. PT DOES NOT FOLLOW COMMANDS BUT HAS EYES OPEN AND RESPONDS TO PAIN. BED ALARM ON. WILL CONT TO FOLLOW POC
--- NOTE | 2019-06-08 12:15 | NUR ---
OBTAINED PHONE CONSENT FROM PT MOM WITH SECOND NURSE WITNESS.
--- NOTE | 2019-06-08 12:45 | NUR ---
PT INTUBATED AT BEDSIDE THEN LEFT FOR IVR
[2019-06-08 13:06] LABS: APTT 50.4 SECONDS (22.8-39.4); INR 1.16 (0.85-1.17); PROTIME 14.8 SECONDS (11.6-15.0)
--- NOTE | 2019-06-08 14:00 | NUR ---
PT RETURNED FROM IVR WITH BRENNAN NEPHROSTOMY TUBES. ETT SECURED. VSS. WILL CONT TO FOLLOW POC
[2019-06-08 14:52] LABS: BILIRUBIN NEGATIVE (NEGATIVE); GLUCOSE NEGATIVE (NEGATIVE); KETONE NEGATIVE (NEGATIVE); NITRITE POSITIVE (NEGATIVE); SPECIFIC GRAVITY 1.005 (1.005-1.020); UROBILINOGEN NORMAL (NORMAL)
[2019-06-08 14:54] LABS: WHITE CELLS - URINE >50 /hpf (NEGATIVE)
[2019-06-08 14:55] LABS: AMORPHOUS SEDIMENT <1+ /lpf (NONE SEEN); BACTERIA MANY /hpf (NEGATIVE)
[2019-06-08 15:55] LABS: YEAST >1+ WITH HYPHAE /hpf (NONE SEEN)
[2019-06-08 17:00] LABS: ANION GAP 17.2 mmol/L (8-16); CALCIUM 8.5 mg/dL (8.5-10.1); CARBON DIOXIDE 21.7 mmol/L (21.0-32.0); CREATININE - SERUM 4.3 mg/dL (0.6-1.3)
--- NOTE | 2019-06-08 17:00 | NUR ---
PT RESTING IN BED, VSS AND WNL. ETT SECURED. NO SIGNS OF DISTRESS NOTED. WILL CONT TO FOLLOW POC
[2019-06-08 17:03] LABS: POTASSIUM - SERUM 4.9 mmol/L (3.5-5.1)
--- NOTE | 2019-06-08 19:38 | NUR ---
SHIFT ASSESSMENT COMPLETED SEE FLOWSHEET - PT INTUBATED NO SEDATION, OPENS EYES TO SPEECH. NOT FOLLOWING COMMANDS, BILAT NEPHROSTOMY TUBES IN PLACE RIGHT SIDE MINIMAL DRAINAGE AT THIS TIME. PT RESTRAINED TO PROTECT LINES AND TUBING. VSS CPOC
--- NOTE | 2019-06-08 21:01 | MORECARE ---
CASE MANAGEMENT DISCHARGE SUMMARY PATIENT: SIM LOPEZ JR UNIT: [id number] ADM DATE: 06/06/19 AGE: 59 : 62 SEX: M ROOM/BED: D.2302 AUTHOR: ESTRADA RAYA PHYSICIAN: REFERRING PHYSICIAN: YVONNE HOWELL MD DATE OF SERVICE: 06/08/19 Discharge Plan Patient Name: SIM LOPEZ [facility] [facility] 1960 Planned Disposition: Anticipated Discharge Date: Discharge Date: Expected LOS: Initial Reviewer: [email or web address] Initial Review Date: 06/06/2019 Generated: 06/08/19 10:01 pm DCPIA - Discharge Planning Initial Assessment Updated by [email or web address]: Laura Ramirez on 06/08/19 8:59 pm * How many steps to enter\exit or inside your home? Patient Name: SIM LOPEZ Page 49584 at 210 All edits/amendments must be made on the electronic document DICTATION DATE: 06/08/192100 BEEHIVE KILN CHARCOAL BURNER: JAXON 06/08/192100 RPT#: [id number] DC DATE: STATUS: ADM IN [facility] [address] [place] [address] END OF REPORT
--- NOTE | 2019-06-08 21:34 | NUR ---
PT MOTHER CALLED FOR UPDATE, PASSWORD PROVIDED - UPDATE GIVEN ALL QUESTIONS ANSWERED.
--- NOTE | 2019-06-08 22:15 | NUR ---
BILAT NEPHROSTOMY TUBES FLUSHED PER ORDER, OUTPUT RECORDED PER FLOWSHEET. PT REPOSITIONED FOR COMFORT ORAL CARE PROVIDED VSS CPOC
--- NOTE | 2019-06-08 23:11 | NUR ---
REASSESSMENT COMPLETED SEE FLOWSHEET
[2019-06-09] VITALS (24 sets, daily range): BP systolic 97–140; BP diastolic 58–79
--- NOTE | 2019-06-09 00:37 | NUR ---
OG TUBE PLACED AND PLACEMENT VERIFIED BY TWO RN'S BY AUSCULTATION. AIR BOLUS AUDIBLE LUQ. MEDICATION ADMINISTERED PER ORDER SEE MAR FOR ADMINISTRATION. LIS WILL START AFTER MEDICATION ABSORPTION. VSS CPOC
--- NOTE | 2019-06-09 02:55 | NUR ---
PT RECEIVED CHG BATH AND FULL LINEN CHANGE AT THIS TIME. REASSESSMENT COMPLETED SEE FLOWSHEET
--- NOTE | 2019-06-09 07:17 | NUR ---
PT RESTING IN BED, VSS AND WNL. SHIFT ASSESSMENT PERFORMED. NO SIGNS OF DISTRESS NOTED. BED ALARM ON. CALL LIGHT WITHIN REACH, DENIES ANY NEEDS AT THIS TIME, WILL CONT TO FOLLOW POC
[2019-06-09 09:02] LABS: HEMOGLOBIN 8.4 g/dL (13.5-17.5); LYMPHOCYTES 7.5 % (15-50); MCH 26.2 pg (26.0-34.0); MCHC 32.3 g/dL (31.0-37.0); MEAN PLATELET VOLUME 8.7 fL (7.4-10.4); NEUTROPHILS 85.4 % (40-80); PLATELET COUNT 147 10x3/uL (130-400); RBC 3.21 10x6/uL (4.20-6.10); RDW 19.4 % (11.5-14.5); WBC 10.9 10x3/uL (4.8-10.8)
--- NOTE | 2019-06-09 09:12 | NUR ---
PT RESTING IN BED, VSS AND WNL. ETT SECURED. BED ALARM ON. NO SIGNS OF DISTRESS NOTED. WILL CONT TO FOLLOW POC
[2019-06-09 09:18] LABS: ALBUMIN 1.3 g/dL (3.4-5.0); BILIRUBIN - TOTAL 0.27 mg/dL (0.2-1.3); CALCIUM 8.6 mg/dL (8.5-10.1); CARBON DIOXIDE 23.1 mmol/L (21.0-32.0); PHOSPHOROUS 7.2 mg/dL (2.5-4.9); POTASSIUM - SERUM 5.1 mmol/L (3.5-5.1); PROTEIN - SERUM 6.5 g/dL (6.4-8.2); VANCOMYCIN - RANDOM 17.8 ug/mL (10.0-20.0)
--- NOTE | 2019-06-09 09:22 | NUR ---
Nutrition follow-up: Pt remains intubated, sedated at this time NPO Nephrostomy tube placed Wt: 160# Labs reviewed Recommend starting Pulmocare ~ 25 ml/hr with increase to 45 ml/hr RDN following.
--- NOTE | 2019-06-09 09:47 | NUR ---
INCREASED RR TO 20 PER ORDER
--- NOTE | 2019-06-09 11:00 | NUR ---
PT RESTING IN BED, REPOSITIONED, NO SIGNS OF DISTRESS NOTED. ETT SECURED, VSS AND WNL, WILL CONT TO FOLLOW POC
[2019-06-09 12:09] LABS: FUNGUS STAIN Final report (())
--- NOTE | 2019-06-09 12:19 | NUR ---
PHONE CONSENT OBTAINED WITH SECOND NURSE WITNESS FROM [facility] FOR BRONCHOSCOPY.
--- NOTE | 2019-06-09 13:00 | NUR ---
BEDSIDE BRONCH PERFORMED BY . PT TOLERATED WELL. NO SIGNS OF DISTRESS NOTED AT THIS TIME, BED ALARM ON, VSS AND WNL. WILL CONT TO FOLLOW POC
--- NOTE | 2019-06-09 15:00 | NUR ---
PT REPOSITIONED, ETT SECURED. NO SIGNS OF DISTRESS NOTED. BED ALARM ON. WILL CONT TO FOLLOW POC
[2019-06-09 15:10] LABS: ACID FAST SMEAR Negative (()); AFB SPECIMEN PROCESSING Concentration (())
--- NOTE | 2019-06-09 17:11 | NUR ---
PT RESTING IN BED, VSS AND WNL. ETT SECURED. NO SIGNS OF DISTRESS NOTED. BED ALARM ON. WILL CONT TO FOLLOW POC
--- NOTE | 2019-06-09 17:40 | NUR ---
PT LEFT FOR NUCLEAR MED
--- NOTE | 2019-06-09 18:58 | MORECARE ---
CASE MANAGEMENT DISCHARGE SUMMARY PATIENT: SIM LOPEZ JR UNIT: [id number] ADM DATE: 06/06/19 AGE: 59 : 62 SEX: M ROOM/BED: D.2302 AUTHOR: SETRADA RAYA PHYSICIAN: REFERRING PHYSICIAN: VYONNE HOWELL MD DATE OF SERVICE: 06/09/19 Discharge Plan Patient Name: SIM [facility]OPEZ [facility] [facility] 1960 Planned Disposition: Anticipated Discharge Date: Discharge Date: Expected LOS: Initial Reviewer: [email or web address] Initial Review Date: 06/06/2019 Generated: 06/09/19 7:57 pm DCPIA - Discharge Planning Initial Assessment Updated by [email or web address]: Laura Ramirez on 06/09/19 6:53 pm * How many steps to enter\exit or inside your home? * Pharmacy [facility] * Preadmission Environment Home with Family * ADLs Total Dependent * Equipment Power Chair or Electric Scooter * List name and contact numbers for known caregivers / representatives who currently or will assist patient after discharge: AMANDA - [phone] * Verbal permission to speak to the caregivers and representatives has been obtained from the patient. N/A * Community resources currently utilized Private Duty Care * Please name any agencies selected above. [facility] * Additional services required to return to the preadmission environment? No * Can the patient safely return to the preadmission environment? Yes * Has this patient been hospitalized within the prior 30 days at any hospital? No Last DP export: 06/08/19 8:01 pm Patient Name: SIM LOPEZ Page 86124 at 1858 All edits/amendments must be made on the electronic document DICTATION DATE: 06/09/191856 LIQUID LOADER: JAXON 06/09/191856 RPT#: [id number] DC DATE: STATUS: ADM IN [facility] [address] [place] [address] END OF REPORT
--- NOTE | 2019-06-09 19:10 | MORECARE ---
CASE MANAGEMENT DISCHARGE SUMMARY PATIENT: SIM LOPEZ JR UNIT: [id number] ADM DATE: 06/06/19 AGE: 59 : 62 SEX: M ROOM/BED: D.2302 AUTHOR: DOROTA,DOC PHYSICIAN: REFERRING PHYSICIAN: YVONNE HOWELL MD DATE OF SERVICE: 06/09/19 Discharge Plan Patient Name: SIM LOPEZ Facility: [facility]:[place] : 1960 Planned Disposition: Home with Home Health Anticipated Discharge Date: Discharge Date: Expected LOS: Initial Reviewer: [email or web address] Initial Review Date: 06/06/2019 Generated: 06/09/19 8:10 pm Comments DCP- Discharge Planning Updated by [email or web address]: Laura Ramirez on 06/09/19 6:[address] Patient Name: SIM LOPEZ Admission Status: ER Accout number: [id number] Admission Date: 06-06-2019 : 1960 Admission Diagnosis:SEPSIS, UNSPECIFIED ORGANISM Attending: JESSICA HOWELL Current LOS: 3 Anticipated DC Date: Planned Disposition: HOME W HH, 24HR [facility] Primary Insurance: MEDICARE A & B Discharge Planning Comments: Patient is currently on vent sedated at this time. CM spoke with patient;s mother Venecia [phone]. Patient lives at home with his mother. Patient has 24 hr caregivers with home instead he also has home health with [facility]. MANISH signed to resume care with both. Patient has a oil field caser Vidya that will help assist as needed [phone] she asked for clinicals to be sent. She stated that patient had a spinal injury while at work and she works for [employer]. 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 SONAM will have to contact patient's mother and make sure it is alright to release information to Vidya fax [phone]. SONAM will continue to follow and assist as needed with discharge planning / needs. Knot Saw Operator: Laura Ramirez DCPIA - Discharge Planning Initial Assessment Updated by [email or web address]: Laura Ramirez on 06/09/19 6:53 pm * How many steps to enter\exit or inside your home? * Pharmacy [facility] * Preadmission Environment Home with Family * ADLs Total Dependent * Equipment Power Chair or Electric Scooter * List name and contact numbers for known caregivers / representatives who currently or will assist patient after discharge: VENECIA PIERCE - [phone] * Verbal permission to speak to the caregivers and representatives has been obtained from the patient. N/A * Community resources currently utilized Private Duty Care * Please name any agencies selected above. [facility] * Additional services required to return to the preadmission environment? No * Can the patient safely return to the preadmission environment? Yes * Has this patient been hospitalized within the prior 30 days at any hospital? No Coverage Notice Reviewer: [email or web address] Shay Ramirez Notice Issued Date-Time: 06/09/2019 19:08 Notice Type: Patient Choice Letter Notice Delivered To: Family Member Relationship to Patient: Mother Superintendent Distribution Name: Delivery Method: PHONE - Phone Valerie Days: Prior Verbal Notification: Yes Recipient Understood Notice: Yes Recipient Signature: Prem Rec Note Co-signed by Attending: Coverage Notice Comment: resume [facility] HH resume [facility] Last DP export: 06/09/19 5:58 pm Patient Name: SIM LOPEZ Page 36613 at 1910 All edits/amendments must be made on the electronic document DICTATION DATE: 06/09/191909 WOOD MILLER: JAXON 06/09/191909 RPT#: [id number] DC DATE: STATUS: ADM IN [facility] [address] [place] [address] END OF REPORT
--- NOTE | 2019-06-09 19:45 | NUR ---
SHIFT ASSESSMENT COMPLETED, PT FEBRILE AND TACHYCARDIC - REMOVED EXCESS COVERS AND DECREASED ROOM TEMPERATURE. PT INTUBATED, NOT SEDATED, BILAT NEPHROSOTMY TUBE CDI - OG/ETT SECURED. PT RECEIVED ICE PACKS AT THIS TIME FOR ELEVATED TEMPERATURE. WILL CONTINUE TO CLOSELY MONITOR
--- NOTE | 2019-06-09 20:30 | NUR ---
MANUEL AT BEDSIDE UPDATED PATIENT STATUS NEW ORDERS RECEIVED
--- NOTE | 2019-06-09 20:46 | NUR ---
PT RECEIVED TYLENOL PER ORDER FOR FEVER - SEE MAR FOR ADMINISTRATION
--- NOTE | 2019-06-09 23:10 | NUR ---
REASSESSMENT COMPLETED SEE FLOWSHEET
[2019-06-10] VITALS (24 sets, daily range): BP systolic 99–163; BP diastolic 58–94
--- NOTE | 2019-06-10 01:52 | NUR ---
PT STILL FEBRILE DESPITE MEDICATIONS AND ENVIRONMENTAL CHANGES, WILL CONTINUE TO MONITOR CLOSELY
--- NOTE | 2019-06-10 03:15 | NUR ---
REASSESSMENT COMPLETED SEE FLOWSHEET
[2019-06-10 04:14] LABS: BASOPHILS 0.1 % (0-2); EOSINOPHILS 1.3 % (0-7); HEMATOCRIT 23.5 % (42.0-54.0); HEMOGLOBIN 7.6 g/dL (13.5-17.5); IMMATURE GRANULOCYTES 0.2 % (0-5); LYMPHOCYTES 17.5 % (15-50); MCH 25.9 pg (26.0-34.0); MCHC 32.3 g/dL (31.0-37.0); MCV 79.9 fL (80.0-100.0); MEAN PLATELET VOLUME 9.5 fL (7.4-10.4); MONOCYTES 6.8 % (2-11); NEUTROPHILS 74.1 % (40-80); PLATELET COUNT 137 10x3/uL (130-400); RBC 2.94 10x6/uL (4.20-6.10); RDW 18.4 % (11.5-14.5); WBC 8.9 10x3/uL (4.8-10.8)
[2019-06-10 04:32] LABS: ALBUMIN 1.2 g/dL (3.4-5.0); ANION GAP 15.4 mmol/L (8-16); BILIRUBIN - TOTAL 0.31 mg/dL (0.2-1.3); CALCIUM 8.2 mg/dL (8.5-10.1); CARBON DIOXIDE 21.9 mmol/L (21.0-32.0); PHOSPHOROUS 6.2 mg/dL (2.5-4.9); POTASSIUM - SERUM 4.3 mmol/L (3.5-5.1); PROTEIN - SERUM 6.2 g/dL (6.4-8.2)
--- NOTE | 2019-06-10 09:38 | NUR ---
0700 PT RECIEVED ALERT AND ABLE TO FOLLOW COMMANDS, VSS SHAKES HEAD NO TO PAIN, LFA PIV PATENT, DRESSINGS TO L HEEL BILAT HIPS AND COCCYX CDI SUPRAPUBIC CATH DRESSING CDI, LOOSE LIQUID BM NOTED AND PERICARE AND LINENS CHANGED 0800 LIQUID BM NOTED, PERICARE DONE AND LINENS CHANGED 0930 LIQUID BM NOTED PERICARE AND LINENS CHANGED, STOOL SAMPLE SENT TO LAB
--- NOTE | 2019-06-10 10:05 | NUR ---
CALLED BLOOD BANK TO CONFIRM THEY ARE AWARE OF ORDER FOR PRBCS, THEY STATED THEY WOULD CHECK IT THEN STATED HE NEEDED A NEW TYPE AND CROSS AND WOULD BE COMING TO DRAW IT
--- NOTE | 2019-06-10 12:58 | NUR ---
PT LEFT AMBULATORY AMA
--- NOTE | 2019-06-10 15:02 | NUR ---
RECIEVED REPORT ON PT AT THIS TIME. VSS. WILL CONTINUE PLAN OF CARE.
--- NOTE | 2019-06-10 17:28 | NUR ---
SPOKE WITH PTS FAMILY AT THIS TIME, QUESTIONS ANSWERED. EMERGENCY CONTACT INFORMATION CONFIRMED. VSS. NO ACUTE DISTRESS NOTED. WILL CONTINUE PLAN OF CARE.
--- NOTE | 2019-06-10 19:10 | NUR ---
SHIFT ASSESSMENT COMPLETED - BM NOTED, FULL BATH AND PARTIAL LINEN CHANGE COMPLETED AT THIS TIME. PATIENT FOLLOWING COMMANDS AT THIS TIME. ELEVATED BP. AFEBRILE, WILL CONTINUE TO CLOSELY MONITOR
--- NOTE | 2019-06-10 21:30 | NUR ---
PT INTUBATED, AWAKE AND ALERT FOLLOWING COMMANDS, VSS CPOC
--- NOTE | 2019-06-10 23:20 | NUR ---
REASSESSMENT COMPLETED SEE FLOWSHEET
[2019-06-11] VITALS (23 sets, daily range): BP systolic 107–159; BP diastolic 69–98
--- NOTE | 2019-06-11 00:47 | NUR ---
PT INTUBATED, RESTING COMFORTABLY WITH EYES CLOSED. CPOC
--- NOTE | 2019-06-11 03:08 | NUR ---
REASSESSMENT COMPLETED SEE FLOWSHEET, PT FEBRILE AT THIS TIME, GIVEN FEVER STATISTICIAN SEE MAR FOR ADMINISTRATION. WILL CONTINUE TO MONITOR
--- NOTE | 2019-06-11 03:10 | NUR ---
PATIENT NODS HEAD APPROPRIATELY TO YES AND NO QUESTIONS, PT RECEIVED PRN SEDATION MEDICATION FOR COMFORT WILL CONTINUE TO CLOSELY MONITOR
--- NOTE | 2019-06-11 05:45 | NUR ---
PT RECEIVED SEDATION SEE MAR FOR ADMINISTRATION - FULL CHG BATH COMPLETED AT THIS TIME. REPOSITIONED FOR COMFORT. PT FOLLOWING COMMANDS
[2019-06-11 07:24] LABS: ANION GAP 13.7 mmol/L (8-16); CALCIUM 7.9 mg/dL (8.5-10.1); CARBON DIOXIDE 21.6 mmol/L (21.0-32.0); CREATININE - SERUM 3.5 mg/dL (0.6-1.3); PHOSPHOROUS 4.7 mg/dL (2.5-4.9)
[2019-06-11 07:25] LABS: POTASSIUM - SERUM 3.3 mmol/L (3.5-5.1)
[2019-06-11 08:28] LABS: BASOPHILS 0.2 % (0-2); EOSINOPHILS 10.8 % (0-7); HEMATOCRIT 24.1 % (42.0-54.0); IMMATURE GRANULOCYTES 0.4 % (0-5); LYMPHOCYTES 13.7 % (15-50); MCH 26.1 pg (26.0-34.0); MCHC 33.2 g/dL (31.0-37.0); MCV 78.8 fL (80.0-100.0); MEAN PLATELET VOLUME 9.5 fL (7.4-10.4); MONOCYTES 5.7 % (2-11); NEUTROPHILS 69.2 % (40-80); PLATELET COUNT 132 10x3/uL (130-400); RBC 3.06 10x6/uL (4.20-6.10); RDW 18.3 % (11.5-14.5); WBC 10.7 10x3/uL (4.8-10.8)
--- NOTE | 2019-06-11 10:00 | NUR ---
NEPHROSTOMY DRAINS FLUSHED PER ORDERS TO FLUSH EACH ONE WITH 10ML Q8H. SEE I&O FOR OUTPUT INFORMATION REGARDING THIS.
--- NOTE | 2019-06-11 12:13 | NUR ---
PER DR NICHOLSON, START FENTANYL BOX OFFICE ATTENDANT FOR PTS C/O PAIN WHEN ASKED. ALSO AT THIS TIME INCONTINENT BOWEL MOVEMENT NOTED. TOTAL LINEN CHANGE PROVIDED. CLARE CARE PROVIDED. PT TURNED Q2H. ORAL CARE PROVIDED Q2H. WILL CONTINUE PLAN OF CARE.
--- NOTE | 2019-06-11 12:22 | NUR ---
5ML RESIDUAL NOTED TO OGT, TUBE FEED RATE INCERASED FROM 20ML/HR TO 30ML/HR PER ORDERS. VSS. WILL CONTINUE PLAN OF CARE.
--- NOTE | 2019-06-11 14:23 | NUR ---
NO ACUTE DISTRESS NOTED AT THIS TIME. VSS. PT TURNED Q2H. ORAL CARE PROVIDED Q2H. WILL CONTINUE PLAN OF CARE.
--- NOTE | 2019-06-11 16:00 | NUR ---
NEPHROSTOMY TUBES FLUSHED PER ORDERS. I&O ALSO OBTAINED AT THIS TIME. SEE FLOWSHEET.
--- NOTE | 2019-06-11 16:23 | NUR ---
PTS MOTHER IN ROOM, UPDATES PROVIDED. NO ACUTE DISTRESS NOTED. CALL LIGHT IN REACH. PT WATCHING TV. VSS. WILL CONTINUE PLAN OF CARE.
--- NOTE | 2019-06-11 18:08 | NUR ---
INCONTINENT BOWEL MOVEMENT NOTED AT THIS TIME. TOTAL LINEN CHANGE PROVIDED. CLARE CARE PROVIDED. BUTT PASTE APPLIED TO GROIN AND BUTTOCKS. VSS. WILL CONTINUE PLAN OF CARE.
[2019-06-12] VITALS (29 sets, daily range): BP systolic 100–156; BP diastolic 64–106
[2019-06-12 04:47] LABS: BASOPHILS 0.2 % (0-2); EOSINOPHILS 15.9 % (0-7); HEMATOCRIT 25.8 % (42.0-54.0); HEMOGLOBIN 8.4 g/dL (13.5-17.5); IMMATURE GRANULOCYTES 0.4 % (0-5); LYMPHOCYTES 16.2 % (15-50); MCH 25.9 pg (26.0-34.0); MCHC 32.6 g/dL (31.0-37.0); MCV 79.6 fL (80.0-100.0); MEAN PLATELET VOLUME 9.8 fL (7.4-10.4); MONOCYTES 6.1 % (2-11); NEUTROPHILS 61.2 % (40-80); PLATELET COUNT 139 10x3/uL (130-400); RBC 3.24 10x6/uL (4.20-6.10); RDW 18.5 % (11.5-14.5); WBC 9.8 10x3/uL (4.8-10.8)
[2019-06-12 05:25] LABS: CALCIUM 8.1 mg/dL (8.5-10.1); CARBON DIOXIDE 20.9 mmol/L (21.0-32.0)
[2019-06-12 05:27] LABS: ANION GAP 13.2 mmol/L (8-16); POTASSIUM - SERUM 3.1 mmol/L (3.5-5.1)
[2019-06-12 08:29] LABS: APTT 57.5 SECONDS (22.8-39.4); INR 1.29 (0.85-1.17)
--- NOTE | 2019-06-12 09:10 | NUR ---
Nutrition follow-up: Pt intubated, sedated Nepro @ 30 ml/hr; CPAP trials today Labs reviewed Wt: 162# RDN following.
--- NOTE | 2019-06-12 09:53 | NUR ---
0700 BEDSIDE REPORT RECEIVED TUBE FEED TURNED OFF BY FELLER OPERATOR ASSESSMENT COMPLETE REPOSITIONED IN BED WITH ASSIST X 2 REMAINS NPO FOR PPROCEEDURE TODAY
--- NOTE | 2019-06-12 10:04 | NUR ---
0830 CONSENT OBTAINED VIA PHONE FROM HIS MOTHER [facility] PATIENT UNABLE TO SIGN HE IS VENTED AND SEDATED ON FENTANYL
--- NOTE | 2019-06-12 10:06 | NUR ---
0900 MEDIUM BROWN LIQUID BM NOTED CHG BATH COMPLETE
--- NOTE | 2019-06-12 10:08 | NUR ---
0942 TRANSPORTED TO IR BY IR NURSING STAFF AND RT [place] FOR RIGHT KIDNEY PROCEEDURE
--- NOTE | 2019-06-12 11:09 | NUR ---
1100 PT HAS NOT RETURNED FROM IR YET
--- NOTE | 2019-06-12 12:40 | NUR ---
1143 RETURNED FROM IR PROCEEDURE INITIATED FREQUENT VITAL SIGNS DRESSING YO RIGHT FLANK CDI AWAKENS TO VOICE
--- NOTE | 2019-06-12 12:42 | NUR ---
1232 SELF-EXTUBATED RT [place] ARRIVED AND COMPLETED EXTUBATION BREATHING WELL ON HIS OWN INSTRUCTED PT NOT TO TALK NOTIFIED DR CRENSHAW NO NEW ORDERS NOTED
--- NOTE | 2019-06-12 14:35 | NUR ---
1235 PLACED ON 4L/NC NATHANIEL WELL BED ALARM ON RESTRAINTS D/C
--- NOTE | 2019-06-12 14:38 | NUR ---
1300 RESTING QUIETLY UPDATED PTS MOTHER WHEN HIREN CALLED
[2019-06-13] VITALS (13 sets, daily range): BP systolic 101–139; BP diastolic 66–83
[2019-06-13 05:09] LABS: ANION GAP 12.3 mmol/L (8-16); CALCIUM 7.9 mg/dL (8.5-10.1); CREATININE - SERUM 2.3 mg/dL (0.6-1.3)
[2019-06-13 05:11] LABS: POTASSIUM - SERUM 3.3 mmol/L (3.5-5.1)
[2019-06-13 05:13] LABS: BASOPHILS 0.1 % (0-2); EOSINOPHILS 7.3 % (0-7); HEMOGLOBIN 8.2 g/dL (13.5-17.5); IMMATURE GRANULOCYTES 0.6 % (0-5); MCH 25.5 pg (26.0-34.0); MCHC 31.5 g/dL (31.0-37.0); MEAN PLATELET VOLUME 10.1 fL (7.4-10.4); MONOCYTES 6.4 % (2-11); NEUTROPHILS 71.6 % (40-80); PLATELET COUNT 157 10x3/uL (130-400); RBC 3.21 10x6/uL (4.20-6.10); RDW 19.1 % (11.5-14.5)
[2019-06-13 05:14] LABS: WBC 7.1 10x3/uL (4.8-10.8)
--- NOTE | 2019-06-13 10:23 | NUR ---
1500 REMAINS DEMANDING USED PILLOWS FOR SUPPORT OF ARMS AND LEGS FOR COMFORT CALLED HIS MOTHER PER HIS REQUEST REPORTED THAT HIS MOTHER WILL COME SEE HIM THIS WEEKEND
--- NOTE | 2019-06-13 10:26 | NUR ---
1700 NOTIFIED SPEECH THERAPY FOR BWEDSIDE SWALLOW EVAL
--- NOTE | 2019-06-13 10:26 | NUR ---
1800 BEDSIDE SWALLOW COMPLETE
--- NOTE | 2019-06-13 10:27 | NUR ---
0700 AWAKE ALERT YELLING OUT FOR NURSE REPOSITIONED PATIENT IN BED FOR COMFORT
--- NOTE | 2019-06-13 10:28 | NUR ---
0745 NEW ORDER FOR RENAL DIET NOTED
--- NOTE | 2019-06-13 10:29 | NUR ---
O8OO NOTIFIED DR LEWIS BEFORE FEEDING PATIENT TO VERIFY THAT MD WAS NOT PERFORMING SURGERY TODAY ON PATIENT PATIENT IS NOT ON THE SURGERY SCHEDULE TODAY
--- NOTE | 2019-06-13 10:33 | NUR ---
0900 SMALL LIQUID BM NOTED CHG BATH GIVEN LINENS CHANGED REPOSITIIONED PATIENT TO HIS LEFT SIDE
--- NOTE | 2019-06-13 10:35 | NUR ---
1000 PATIENTS MOTHER CALLED INFORMED HER THAT HE HAS AN ORDER TO TRANSFER OUT OF ICU NO ROOM NUMBER OF YET
--- NOTE | 2019-06-13 13:45 | NUR ---
1400 RESTING QUIETLY AFTER MUCH TO DO IN GETTING HIS LEGS IN THE RIGHT POSITION
--- NOTE | 2019-06-13 16:20 | MORECARE ---
CASE MANAGEMENT DISCHARGE SUMMARY PATIENT: SIM LOPEZ JR UNIT: [id number] ADM DATE: 06/06/19 AGE: 59 : 62 SEX: M ROOM/BED: D.2302 AUTHOR: DOROTA,DOC PHYSICIAN: REFERRING PHYSICIAN: YVONNE HOWELL MD DATE OF SERVICE: 06/13/19 Discharge Plan Patient Name: SIM LOPEZ Facility: [facility]:[place] : 1960 Planned Disposition: Home with Home Health Anticipated Discharge Date: Discharge Date: Expected LOS: Initial Reviewer: [email or web address] Initial Review Date: 06/06/2019 Generated: 06/13/19 5:20 pm DCP- Discharge Planning Updated by [email or web address]: Laura Ramirez on 06/09/19 5:[address] Patient Name: SIM LOPEZ Admission Status: ER Accout number: [id number] Admission Date: 06-06-2019 : 1960 Admission Diagnosis:SEPSIS, UNSPECIFIED ORGANISM Attending: JESSICA HOWELL Current LOS: 3 Anticipated DC Date: Planned Disposition: HOME W HH, 24HR [facility] Primary Insurance: MEDICARE A & B Discharge Planning Comments: Patient is currently on vent sedated at this time. CM spoke with patient;s mother Venecia [phone]. Patient lives at home with his mother. Patient has 24 hr caregivers with home instead he also has home health with [facility]. MANISH signed to resume care with both. Patient has a correctional case records supervisor Vidya that will help assist as needed [phone] she asked for clinicals to be sent. She stated that patient had a spinal injury while at work and she works for [employer]. She states that has been his correctional case records supervisor since 2008. SONAM will have to contact patient's mother and make sure it is alright to release information to Vidya fax [phone]. SONAM will continue to follow and assist as needed with discharge planning / needs. Endodontic Assistant: Laura Ramirez DCPIA - Discharge Planning Initial Assessment Updated by [email or web address]: Laura Ramirez on 06/09/19 6:53 pm * How many steps to enter\exit or inside your home? * Pharmacy [facility] - [address] [place] * Preadmission Environment Home with Family * ADLs Total Dependent * Equipment Power Chair or Electric Scooter * List name and contact numbers for known caregivers / representatives who currently or will assist patient after discharge: VENECIA PIERCE - [phone] * Verbal permission to speak to the caregivers and representatives has been obtained from the patient. N/A * Community resources currently utilized Private Duty Care * Please name any agencies selected above. [facility] * Additional services required to return to the preadmission environment? No * Can the patient safely return to the preadmission environment? Yes * Has this patient been hospitalized within the prior 30 days at any hospital? No Coverage Notice Reviewer: [id number] Shay Ramirez Notice Issued Date-Time: 06/09/2019 19:08 Notice Type: Patient Choice Letter Notice Delivered To: Family Member Relationship to Patient: Mother Solutions Sales Executive Name: Delivery Method: PHONE - Phone Valerie Days: Prior Verbal Notification: Yes Recipient Understood Notice: Yes Recipient Signature: Perm Rec Note Co-signed by Attending: Coverage Notice Comment: resume [facility] resume [facility] Last DP export: 06/09/19 5:10 pm Patient Name: SIM LOPEZ Page [phone] at 1620 All edits/amendments must be made on the electronic document DICTATION DATE: 06/13/19 1620 LEMON PICKER: JAXON 06/13/19 1620 RPT#: [id number] DC DATE: STATUS: ADM IN [facility] [address] [place] [address] END OF REPORT
--- NOTE | 2019-06-13 16:27 | NUR ---
1625 REPORT CALLED TO [facility] FOR ROOM 2219
[2019-06-13 18:08] LABS: CALCIUM 7.9 mg/dL (8.5-10.1); CARBON DIOXIDE 20.4 mmol/L (21.0-32.0); CREATININE - SERUM 2.1 mg/dL (0.6-1.3); POTASSIUM - SERUM 4.4 mmol/L (3.5-5.1)
--- NOTE | 2019-06-13 18:50 | NUR ---
1835 TRANSFERRED PT TO 2213 VIA BED W/O COMPLICATIONS
--- NOTE | 2019-06-13 19:55 | NUR ---
SUPINE IN BED. 1ST STEP OVERLAY IN USE. PT ORRIENTED TO NEW FLOOR. A&O X 4. REPORTS INCONTINENT BOWEL EPISODE. LINENS CHANGED AND CLARE CARE PROVIDED, WILL CONTINUE TO MONITOR.
[2019-06-14 05:08] LABS: BASOPHILS 0.2 % (0-2); EOSINOPHILS 13.4 % (0-7); HEMATOCRIT 27.8 % (42.0-54.0); HEMOGLOBIN 8.8 g/dL (13.5-17.5); IMMATURE GRANULOCYTES 0.7 % (0-5); LYMPHOCYTES 11.5 % (15-50); MCH 25.6 pg (26.0-34.0); MCHC 31.7 g/dL (31.0-37.0); MCV 80.8 fL (80.0-100.0); MEAN PLATELET VOLUME 10.4 fL (7.4-10.4); MONOCYTES 6.2 % (2-11); RBC 3.44 10x6/uL (4.20-6.10); RDW 18.8 % (11.5-14.5); WBC 8.7 10x3/uL (4.8-10.8)
[2019-06-14 05:10] LABS: PLATELET COUNT 191 10x3/uL (130-400)
--- NOTE | 2019-06-14 05:12 | NUR ---
I have reviewed this patient and I concur with the Shift Assessment completed by the Licensed Practical Nurse today this shift.
[2019-06-14 05:18] LABS: ANION GAP 14.7 mmol/L (8-16); CALCIUM 8.3 mg/dL (8.5-10.1); CARBON DIOXIDE 21.3 mmol/L (21.0-32.0)
--- NOTE | 2019-06-14 08:00 | NUR ---
ASSESSMENT PER FLOW SHEET. PATIENT IS WITHOUT DISTRESS. HE IS VERY ANXIOUS AND DOESNT WANT ANYONE DOING MUCH FOR HIM.ISOLATION MAINTAINED
--- NOTE | 2019-06-14 10:30 | NUR ---
CAREGIVER IN ROOM ND PATIENT IS YELLING AND PULLING AT IV. I TRIED TO TALK TO PATIENT,BUT HE DOES NOT WANT TO HEAR ANYTHING I HAVE TO SAY.
--- NOTE | 2019-06-14 16:02 | NUR ---
PT IS COMBATIVE WHEN TRYING TO OBTAIN ABG ORDERED, PT IS REFUSING , NURSE NOTIFIED
--- NOTE | 2019-06-14 16:12 | NUR ---
PATIENT IS REFUSING ALL MEDS AT THIS TIME. PATIENT STATES HE WANTS TO DC AND GO TO [place].CAREGIVER IS AT BEDSIDE.
[2019-06-14 20:00] VITALS: BP 138/79
--- NOTE | 2019-06-15 00:55 | NUR ---
PT RESTING IN BED. EYES CLOSED. NO SIGNS OF DISTRESS. BREATHING EVEN AND UNLABORED. CAREGIVER AT BEDSIDE. NO IV SITE PT REFUSING IV. LEGS SCABS AND SORES. LT AND RT HEEL DRESSING CLEAN DRY AND INTACT. LT AND RT NEPHROSTOMY TUBES IN PLACE. CORREA IN PLACE. 1ST STEP OVERLAY MATTRESS IN PLACE. WILL CONTINUE PLAN OF CARE. CALL LIGHT IN REACH. BED LOWERED AND LOCKED.
--- NOTE | 2019-06-15 01:12 | NUR ---
I have reviewed this patient and I concur with the Shift Assessment completed by the Licensed Practical Nurse today this shift.
[2019-06-15 01:29] VITALS: BP 138/66
[2019-06-15 05:28] LABS: BASOPHILS 0.2 % (0-2); EOSINOPHILS 7.7 % (0-7); IMMATURE GRANULOCYTES 0.9 % (0-5); LYMPHOCYTES 13.1 % (15-50); MCH 25.9 pg (26.0-34.0); MCHC 32.1 g/dL (31.0-37.0); MCV 80.7 fL (80.0-100.0); MEAN PLATELET VOLUME 9.9 fL (7.4-10.4); MONOCYTES 7.7 % (2-11); NEUTROPHILS 70.4 % (40-80); PLATELET COUNT 263 10x3/uL (130-400); RBC 3.47 10x6/uL (4.20-6.10); RDW 18.6 % (11.5-14.5); WBC 9.1 10x3/uL (4.8-10.8)
[2019-06-15 05:53] VITALS: BP 120/62
[2019-06-15 06:07] LABS: ANION GAP 14.5 mmol/L (8-16); CALCIUM 8.6 mg/dL (8.5-10.1); CARBON DIOXIDE 22.4 mmol/L (21.0-32.0); CREATININE - SERUM 1.9 mg/dL (0.6-1.3); POTASSIUM - SERUM 3.9 mmol/L (3.5-5.1); VANCOMYCIN - RANDOM 6.4 ug/mL (10.0-20.0)
[2019-06-15 11:00] VITALS: BP 142/86
--- NOTE | 2019-06-15 12:39 | NUR ---
WENT IN PT ROOM TO GIVE MEDS PER EMAR. NOTICED LEFT NEPHROSTOMY TUBE IS OUT OF PATIENT LAYING ON FLOOR. NO DRAINAGE IN BAG. IR AND DR LEWIS NOTIFIED.
[2019-06-15 13:52] VITALS: BP 132/60
[2019-06-15 15:33] LABS: INR 1.1 (0.85-1.17); PROTIME 14.1 SECONDS (11.6-15.0)
[2019-06-15 15:34] LABS: APTT 56.6 SECONDS (22.8-39.4)
[2019-06-15 16:09] LABS: FUNGUS MYCOLOGY CULTURE Preliminary report (()); FUNGUS STAIN RESULT 1 Hyphae observed (())
[2019-06-15 16:45] VITALS: BP 142/72
[2019-06-15 20:00] VITALS: BP 111/69
[2019-06-16] VITALS (11 sets, daily range): BP systolic 84–127; BP diastolic 51–76
--- NOTE | 2019-06-16 02:37 | NUR ---
PT RESTING IN BED. EYES CLOSED. NO SIGNS OF DISTRESS. BREATHING EVEN AND UNLABORED. IV SITE LT FA DRESSING CLEAN DRY AND INTACT. NO SIGNS OF INFECTION OR INFULTRATION. SUPER PUBIC CATH CLEAN DRY AND INTACT. RT NEPHROSTOMY TUBE IN PLACE. DRESSING CLEAN DRY AND INTACT. LEGS CONTRACTED. WILL CONTINUE PLAN OF CARE. CALL LIGHT IN REACH. BED LOWERED AND LOCKED. BED RAILS UPX3. CAREGIVER AT BEDSIDE.
--- NOTE | 2019-06-16 04:49 | NUR ---
I have reviewed this patient and I concur with the Shift Assessment completed by the Licensed Practical Nurse today this shift.
[2019-06-16 05:13] LABS: HEMATOCRIT 27.7 % (42.0-54.0); HEMOGLOBIN 8.7 g/dL (13.5-17.5); MCHC 31.4 g/dL (31.0-37.0); MEAN PLATELET VOLUME 9.7 fL (7.4-10.4); RBC 3.35 10x6/uL (4.20-6.10); RDW 19.2 % (11.5-14.5); WBC 8.1 10x3/uL (4.8-10.8)
[2019-06-16 05:16] LABS: MCV 82.7 fL (80.0-100.0); PLATELET COUNT 316 10x3/uL (130-400)
[2019-06-16 05:20] LABS: ANION GAP 15.1 mmol/L (8-16); CALCIUM 8.3 mg/dL (8.5-10.1); CARBON DIOXIDE 20.2 mmol/L (21.0-32.0); CREATININE - SERUM 1.7 mg/dL (0.6-1.3); POTASSIUM - SERUM 4.3 mmol/L (3.5-5.1)
[2019-06-16 05:38] LABS: BASOPHILS 3 % (0-2); LYMPHOCYTES 17 % (15-50); MONOCYTES 4 % (2-11); NEUTROPHILS 76 % (40-80); PLATELET ESTIMATE NORMAL
[2019-06-16 05:39] LABS: TARGET CELLS 1+
--- NOTE | 2019-06-16 07:30 | NUR ---
PATIENT AWAKE AND ALERT. EXCITED ABOUT SURGERY. TRIED TO REORIENT THAT HE IS GETTING A NEPHROSTOMY TUBE PLACED. HE BELIEVES HE WILL BE GETTING NEW LEGS. CL IN REACH. WCTM
[2019-06-16 12:09] LABS: FUNGUS CULTURE RESULT 1 Candida albicans (())
--- NOTE | 2019-06-16 13:09 | NUR ---
Nutrition follow-up: Pt NPO for nephrostomy tube placement PO intake of renal diet has been ~25% of meals Labs reviedwed Pt confused per nursing Labs reviewed WT: 184# Will offer nutritional supplement RDN following.
--- NOTE | 2019-06-17 01:52 | NUR ---
PT RESTING IN BED. EYES CLOSED. NO SIGNS OF DISTRESS. BREATHING EVEN AND UNLABORED. IV SITE LT HAND DRESSING CLEAN DRY AND INTACT. NO SIGNS OF INFECTION OR INFULTRATION. BOWEL SOUNDS ACTIVE. LT AND RT NEPHROSTOMY TUBES IN PLACE. DRESSING CLEAN DRY AND INTACT. CORREA IN PLACE. LEGS CONTRACTED. 1ST STEP OVERLAY MATTRESS. RT AND LT LEG SORES/SCABS. LT AND RT HEEL DRESSING CLEAN DRY AND INTACT. HEEL PROTECTORS ON. WILL CONTINUE PLAN OF CARE. CALL LIGHT IN REACH. BED LOWERED AND LOCKED. BED RAILS UPX2. CAREGIVER AT BEDSIDE.
[2019-06-17 04:00] VITALS: BP 117/50
--- NOTE | 2019-06-17 05:22 | NUR ---
I have reviewed this patient and I concur with the Shift Assessment completed by the Licensed Practical Nurse today this shift.
[2019-06-17 06:15] LABS: BASOPHILS 0.4 % (0-2); HEMATOCRIT 26.6 % (42.0-54.0); HEMOGLOBIN 8.4 g/dL (13.5-17.5); IMMATURE GRANULOCYTES 1.2 % (0-5); LYMPHOCYTES 20.4 % (15-50); MCH 26.2 pg (26.0-34.0); MCHC 31.6 g/dL (31.0-37.0); MCV 82.9 fL (80.0-100.0); MEAN PLATELET VOLUME 10.1 fL (7.4-10.4); MONOCYTES 8.2 % (2-11); NEUTROPHILS 66.8 % (40-80); RBC 3.21 10x6/uL (4.20-6.10); RDW 19.5 % (11.5-14.5); WBC 6.9 10x3/uL (4.8-10.8)
[2019-06-17 06:21] LABS: PLATELET COUNT 409 10x3/uL (130-400)
[2019-06-17 06:32] LABS: ANION GAP 12.4 mmol/L (8-16); CALCIUM 8.4 mg/dL (8.5-10.1); CARBON DIOXIDE 23.8 mmol/L (21.0-32.0); CREATININE - SERUM 1.8 mg/dL (0.6-1.3); POTASSIUM - SERUM 4.2 mmol/L (3.5-5.1)
[2019-06-17 08:08] VITALS: BP 112/60
--- NOTE | 2019-06-17 09:00 | NUR ---
AWAKE AND ORIENTED TO SELF AND FAMILAR FACES WITH SISTER PRESENT. GOOD ROM TO BUE WITH PARALYSIS TO BLE WITH CONTRACTURES. HEEL PROTECTORS ON. NEPHROSTOMY TUBES INTACT. IVF INFUSING IN LEFT HAND AT PRESCRIBED RATE. CONTINUES ON ISOLATION. DENIES ANY APIN OR DISCOMFORT AT THIS TIME ADN REPOSITIONED FOR COMFORT WITH AIRMATTRESS IN PLACE. LUNGS CTA AND HRRR. ABDOMEN SOFT WITH BOWEL SOUNDS NOTED.
[2019-06-17 10:52] VITALS: BP 147/76
--- NOTE | 2019-06-17 10:57 | NUR ---
PATIENT RECEIVED TO ROOM AWAKE UPON STIMULATION. ABDOMENSOFT WITH BOWEL SOUNDS ABSENT AT THIS TIME. ABDOMEN DRESSIGN INTACT. OVF INFUSING TO RT ARM AT PRESCRIBED RATE. STABLE AT THIS TIME.
[2019-06-17 12:43] VITALS: BP 121/59
--- NOTE | 2019-06-17 14:50 | NUR ---
LEFT NEPHROSTOMY TUBE RESISTANCE MEET WHEN FLUSHING WITH DR. LEWIS AWARE OF DEVELOPMENT WITH NOEW ORDER NOTED. PATIENT DENIES ANY PAIN OR DISCOMFORT AT THIS TIME. REPOSITIONED FOR COMFORT WITH DRESSINGS CHANGED TO BOLATERAL HEELS, POSTERIOR CALVES AND LUMBAR AREA.
[2019-06-17 16:39] VITALS: BP 127/86
--- NOTE | 2019-06-17 19:00 | NUR ---
BEDSIDE REPORT RECEIVED AND CARE OF PT ASSUMED. PT LYING IN LOW FERRELL'S POSITION ON 1ST STEP AIR MATTRESS OVERLAY. IV TO RIGHT HAND PATENT WITH D51/2NS W/30 MEQ K+ AT 30 ML/HR. CORREA CATHETER DRAINING TO GRAVITY. BILATERAL NEPHROSTOMY TUBES. WILL MONITOR FOR NEEDS.
[2019-06-17 20:00] VITALS: BP 110/60
--- NOTE | 2019-06-17 20:54 | NUR ---
HS MEDICATIONS GIVEN. WILL CONTINUE TO MONITOR FOR NEEDS.
[2019-06-18] VITALS: BP 101/53
[2019-06-18 06:17] LABS: ANION GAP 12.7 mmol/L (8-16); CALCIUM 8.7 mg/dL (8.5-10.1); CARBON DIOXIDE 22.6 mmol/L (21.0-32.0); CREATININE - SERUM 1.8 mg/dL (0.6-1.3); POTASSIUM - SERUM 4.3 mmol/L (3.5-5.1)
[2019-06-18 06:50] LABS: BASOPHILS 0.4 % (0-2); EOSINOPHILS 2.6 % (0-7); HEMATOCRIT 26.5 % (42.0-54.0); HEMOGLOBIN 8.2 g/dL (13.5-17.5); IMMATURE GRANULOCYTES 1.4 % (0-5); LYMPHOCYTES 20.8 % (15-50); MCH 25.8 pg (26.0-34.0); MCHC 30.9 g/dL (31.0-37.0); MCV 83.3 fL (80.0-100.0); MEAN PLATELET VOLUME 10.1 fL (7.4-10.4); MONOCYTES 8.9 % (2-11); NEUTROPHILS 65.9 % (40-80); RBC 3.18 10x6/uL (4.20-6.10); RDW 19.5 % (11.5-14.5); WBC 7.3 10x3/uL (4.8-10.8)
[2019-06-18 06:51] LABS: PLATELET COUNT 493 10x3/uL (130-400)
--- NOTE | 2019-06-18 08:00 | NUR ---
PATIENT ABLE TO AROUSE AND TAKE MEDICATION. DDRESSINGS INTACT TO BILATERAL HEELS, BACK OF CALVES AND LUMBAR AREA. 1ST STEP OVERLAY MATTRESS INFLATED. IVF INFUSING TO RT. HAND W/O ANY S/S OF INFECTION/INFILTRATION. CORREA CATH PATENT WITH SEDEMENT NOTED. NEPHROSTOMY TUBES INTACT. SITTER AT BEDSIDE. ENCOURAGED TO USE CALL LIGHT FOR ASSIST. NO BEHAVIORS NOTED
[2019-06-18 08:28] VITALS: BP 101/62
--- NOTE | 2019-06-18 09:54 | NUR ---
PATIENT NOTED V/S STABLE BUT UNABLE TO AROUSE TO EAT BREAKFAST. RESP EVEN AND UNLABORED. WILL CONTINUE TO MONITOR.
[2019-06-18 12:34] VITALS: BP 106/73
--- NOTE | 2019-06-18 19:00 | NUR ---
BEDSIDE REPORT RECEIVED AND CARE OF PT ASSUMED. PT LYING IN SUPINE POSITION ON 1ST STEP AIR MATTRESS OVERLAY. IV TO LEFT HAND PATENT WITH D51/2 NS W/ 30 KCL INFUSING AT 30 ML/HR. CORREA CATHETER DRAINING TO GRAVITY WITH YELLOW CLOUDY URINE IN COLLECTION BAG. BILATERAL NEPHROSTOMY TUBED IN PLACE WITH NO DRAINAGE IN COLLECTION BAGS.
[2019-06-18 20:00] VITALS: BP 118/62
--- NOTE | 2019-06-18 20:05 | NUR ---
HS MEDICATIONS GIVEN. HELD GEODON AND DEPAKOTE FOR NOW PT VERY LETHARGIC AT THIS TIME.
[2019-06-19] VITALS: BP 116/72
--- NOTE | 2019-06-19 | NUR ---
ALERT, ORIENTED TO SELF. CAREGIVER AT BEDSIDE. 20G IV SITED TO RIGHT WRIST, 1ST ATTEMPT. DENIES PAIN. TURNED TO LEFT SIDE. NEPHROSTOMY TUBES FLUSHED. WILL CONTINUE TO MONITOR.
[2019-06-19 04:00] VITALS: BP 139/68
[2019-06-19 05:22] LABS: BASOPHILS 0.3 % (0-2); EOSINOPHILS 2.5 % (0-7); HEMATOCRIT 28.1 % (42.0-54.0); HEMOGLOBIN 8.9 g/dL (13.5-17.5); IMMATURE GRANULOCYTES 1.6 % (0-5); LYMPHOCYTES 19.8 % (15-50); MCH 26.6 pg (26.0-34.0); MCHC 31.7 g/dL (31.0-37.0); MCV 84.1 fL (80.0-100.0); MEAN PLATELET VOLUME 9.8 fL (7.4-10.4); MONOCYTES 8.3 % (2-11); NEUTROPHILS 67.5 % (40-80); PLATELET COUNT 537 10x3/uL (130-400); RBC 3.34 10x6/uL (4.20-6.10); RDW 20.1 % (11.5-14.5); WBC 6.8 10x3/uL (4.8-10.8)
[2019-06-19 05:51] LABS: ALBUMIN 1.5 g/dL (3.4-5.0); ANION GAP 14.8 mmol/L (8-16); BILIRUBIN - TOTAL 0.25 mg/dL (0.2-1.3); CALCIUM 8.8 mg/dL (8.5-10.1); CARBON DIOXIDE 22.5 mmol/L (21.0-32.0); CREATININE - SERUM 1.8 mg/dL (0.6-1.3); MAGNESIUM - SERUM 2.1 mg/dL (1.8-2.4); PROTEIN - SERUM 7.5 g/dL (6.4-8.2)
[2019-06-19 06:12] LABS: POTASSIUM - SERUM 5.3 mmol/L (3.5-5.1)
[2019-06-19 08:58] VITALS: BP 134/78
[2019-06-19 13:49] VITALS: BP 126/83
[2019-06-19 16:39] VITALS: BP 148/77
[2019-06-19 20:00] VITALS: BP 126/81
[2019-06-20] VITALS (11 sets, daily range): BP systolic 106–152; BP diastolic 62–86
[2019-06-20 07:05] LABS: BASOPHILS 0.7 % (0-2); EOSINOPHILS 4.1 % (0-7); HEMATOCRIT 28.4 % (42.0-54.0); HEMOGLOBIN 8.7 g/dL (13.5-17.5); IMMATURE GRANULOCYTES 2.2 % (0-5); LYMPHOCYTES 25.9 % (15-50); MCH 26.4 pg (26.0-34.0); MCHC 30.6 g/dL (31.0-37.0); MEAN PLATELET VOLUME 9.6 fL (7.4-10.4); NEUTROPHILS 56.1 % (40-80); PLATELET COUNT 527 10x3/uL (130-400); RDW 20.5 % (11.5-14.5); WBC 5.8 10x3/uL (4.8-10.8)
[2019-06-20 07:10] LABS: MCV 86.1 fL (80.0-100.0)
--- NOTE | 2019-06-20 07:10 | NUR ---
PT RESTING IN BED WITH EYES CLOSED. RESPIRATIONS ARE SHALLOW AND UNLABORED. PT IS CONFUSED X 4 AND SPEECH IS SLURRED. THIS IS "NORMAL" PER CAREGIVER AT BEDSIDE. NC SITTING BEHIND PT AND NOT IN PT NOSE. O2 REPLACED TO PT NOSE. SECURITY DOOR INSTALLER STATES "HE ISN'T GOING TO KEEP IT THERE". ENCOURAGED TO ASSIST WITH KEEPING O2 LEVEL 92% OR >. BILATERAL NEPHROSTOMY TUBES NOTED. DRESSINGS IN PLACE AND ARE CDI. CAREGIVER STATES "THEY WERE JUST FLUSHED A LITTLE BIT AGO, THEY DONT NEED FLUSHED" WILL ATTEMPT TO FLUSH LATER IN SHIFT. PT IS NPO FOR PROCEDURE. PT SECURITY DOOR INSTALLER VERBALIZES UNDERSTANDING. PT IS ON FIRST STEP OVERLAY MATTRESS. PT ENCOURGAED TO TCDB. BILATERAL HEEL PADS IN PLACE. BLE BRUISING/DISCOLORATION NOTED. DRESSINGS TO BILATERAL HEELS. DRESSING NOTED TO RIGHT HIP. CONTACT PRECAUTIONS IN PLACE AND FOLLOWED. BED IS IN THE LOWEST POSITION. CALL LIGHT AND BEDSIDE TABLE ARE WITHIN REACH. SIDE RAILS X 2. PT SECURITY DOOR INSTALLER DENIES FURTHER NEEDS AT THIS TIME. WILL CONT TO MONITOR.
--- NOTE | 2019-06-20 08:00 | NUR ---
MEDICATION GIVEN WITH SIPS O2. SEE EMAR. CAREGIVER STATES "WHEN YOU LEAVE SHUT THE DOOR AND TURN OFF THE LIGHTS. WE HAVE HAD A STEADY STREAM OF PEOPLE IN SINCE 4 THIS MORNING" SIGN PLACED ON DOOR TO SEE NURSE BEFORE ENTERING ROOM. WILL ATTEMPT TO ALLOW FOR REST FOR PT AND PT CAREGIVER. PT CAREGIVER TO NOTIFY NURSE OF NEEDS.
[2019-06-20 08:02] LABS: ALBUMIN 1.5 g/dL (3.4-5.0); BILIRUBIN - TOTAL 0.2 mg/dL (0.2-1.3); CALCIUM 8.9 mg/dL (8.5-10.1); CREATININE - SERUM 1.7 mg/dL (0.6-1.3); MAGNESIUM - SERUM 2.1 mg/dL (1.8-2.4); PROTEIN - SERUM 7.6 g/dL (6.4-8.2)
[2019-06-20 08:04] LABS: ANION GAP 13.3 mmol/L (8-16); POTASSIUM - SERUM 4.3 mmol/L (3.5-5.1)
--- NOTE | 2019-06-20 14:44 | NUR ---
PT PRONE ON PILLOWS, ULNA PADS BETWEEN KNEES. HEEL PROTECTORS ON. MEPILEX DRSG NOTED TO COCCYX, MULTIPLE PRESSURE ULCERS NOTED TO BRENNAN HEELS, KNEES.
--- NOTE | 2019-06-20 15:04 | NUR ---
Nutrition follow-up: Left nepphrostomy tube placed today Diet advanced back to regular; PO intake ~25-50% of meals Labs reviewed Wt: 184# Pt resting at this time and has been confused; RDN did not disturb. RDN following.
--- NOTE | 2019-06-20 16:35 | NUR ---
PT RETURNS TO FLOOR FROM PROCEDURE. DRESSING TO RIGHT NEPHROSTOMY IS CDI AND DRAINING RED FLUID WITHOUT DIFFICULTY. VSS. SEE FLOWSHEET. CAREGIVER AT BEDSIDE. SUPRAPUBIC CATHETER NOTED AND DRAINING REF FLUID WITHOUT DIFFICULTY. LEFT NEPHROSTOMY IN PLACE AND DRESSING IS CDI DRAINING YELLOW FLUID WITHOUT DIFFICULTY. PT ON FIRST STEP OVERLAY. SPEECH SLURRED PT IS ORIENTED TO SELF AT THIS TIME. BED IS IN THE LOWEST POSITION. CALL LIGHT AND BEDSIDE TABLE ARE WITHIN REACH. SIDE REAILS X 2. WILL CONT TO MONITOR.
--- NOTE | 2019-06-20 23:33 | NUR ---
I have reviewed this patient and I concur with the Shift Assessment completed by the Licensed Practical Nurse today this shift.
[2019-06-21] VITALS: BP 114/70
--- NOTE | 2019-06-21 00:30 | NUR ---
dressings to hips, heels and coccyx removed, skin cleansed, dried, and new dressings applied. pt tolerated well. caregiver at bedside, no nneeds voiced at this time, will continue to monitor.
[2019-06-21 04:00] VITALS: BP 106/63
[2019-06-21 06:23] LABS: ALBUMIN 1.5 g/dL (3.4-5.0); ANION GAP 12.8 mmol/L (8-16); BILIRUBIN - TOTAL 0.24 mg/dL (0.2-1.3); CALCIUM 8.5 mg/dL (8.5-10.1); CARBON DIOXIDE 23.3 mmol/L (21.0-32.0); CREATININE - SERUM 1.6 mg/dL (0.6-1.3); MAGNESIUM - SERUM 2.1 mg/dL (1.8-2.4); POTASSIUM - SERUM 4.1 mmol/L (3.5-5.1); PROTEIN - SERUM 7.6 g/dL (6.4-8.2)
--- NOTE | 2019-06-21 07:38 | NUR ---
CAREGIVERS STATE CONCERN RELATED TO PT MENTAL STATE AND MEDICATIONS STARTED FOR PSYCHIATRY/MOOD. CAREGIVERS STATES THAT PT IS LETHARGIC AND HAS HAD SLURRED SPEECH SINCE STARTING "NEW MEDS THAT THE PSYCH DR GAVE HIM".
[2019-06-21 07:42] LABS: HEMOGLOBIN 8.9 g/dL (13.5-17.5); MCH 26.3 pg (26.0-34.0); MCHC 30.7 g/dL (31.0-37.0); MCV 85.5 fL (80.0-100.0); PLATELET COUNT 520 10x3/uL (130-400); RBC 3.39 10x6/uL (4.20-6.10); RDW 20.7 % (11.5-14.5); WBC 6.9 10x3/uL (4.8-10.8)
--- NOTE | 2019-06-21 07:43 | NUR ---
PT IS RESTING IN BED WITH EYES OPEN. RESPIRATIONS ARE EVEN AND UNLABORED. PT IS ALERT AND ORIENTED TO SELF/TIME AND DISORIENTED TO SITUATION AND PLACE. PT ANSWERS QUESTIONS APPROPRIATLEY WITH SLURRED SPEECH. PT IS RESTING ON RIGHT SIDE. BILATERAL HEEL PROTECTORS IN PLACE. BILATERAL NEPHROSTOMY TUBES IN PLACE. RIGHT NEPHROSTOYM DRAINING DARK RED FLUID. FLUSHED WITH 10ML SALINE WITHOUT DIFFICULTY. SUPRAPUBIC CATHETER NOTED AND DRAINING LIGHT RED FLUID WITHOUT DIFFICULTY. SUPRAPUBIC INSERTION SITE IS C/D WITHOUT ANY NOTICABLE DRAINAGE. LEFT NEPHOSTOMY WITHOUT DRAINAGE NOTED TO BAG. ATTEMPT MADE TO FLUSH. FLUSH UNSUCCESSFUL. PT IS REFUSING TO REPOSITION TO ATTEMPT FLUSH AGAIN. BS ARE HYPOACTIVE X 4. ABDOMEN IS DISTENDED AND SOFT. PT DENIES PRESENCE OF TENDERNESS UPON PALPATION. PT WITH CONTRACTURES TO BLE. BILATERAL PEDAL PULSES ARE PALP/ CAP REFILL IS < 3 SECONDS. PT IS ON FIRST STEP OVERLAY MATTRESS. BED IS IN THE LOWEST POSITION. CALL LIGHT AND BEDSIDE TABLE ARE WITHIN REACH. SIDE RAILS X 2. MEDICAL LAB TECH INSTRUCTOR AT BEDSIDE. PT DENIES FURTHER NEEDS. WILL CONT TO MONITOR.
--- NOTE | 2019-06-21 08:41 | OP ---
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 PROCEDURES: Right percutaneous nephrolithotomy (PCNL). FINDINGS: Radiodense right renal staghorn stone about 4 x 5 cm in size. SPECIMENS: Right renal stone. ESTIMATED BLOOD LOSS: None. CLINICAL HISTORY: This is a 59-year-old male, who was transferred unconscious from [facility] with acute renal failure. His creatinine at that time was 5. He has a history of a traumatic paraplegia and head trauma. He has a chronic indwelling Amos catheter. 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 He had purulent urine when I was asked to change the suprapubic tube and that is now I initially got involved in his care. Cultures from the wound from the suprapubic tube site grew multiple organisms including MRSA. He is on contact precautions for this. He has at least 3 different organisms in the urine, which are urease producing and most likely producing a struvite staghorn calculus which is infected by definition. He is on multiple antibiotics to cover his infections. He will not clear his infections until he gets rid of these infected stones. The largest stone burden is on the right kidney. I did a renal scan to see if there was any even any function of the right kidney and the right kidney, contributes about 30% of overall GFR. I think he will improve once we get this obstructive right renal stone out of there. He comes today to have a right PCNL done. He already had a right nephrostomy tube access and the right nephroureteral tube placement by interventional radiology. DESCRIPTION OF PROCEDURE: The patient was placed in supine position on his stretcher. He was given induction of general anesthesia on the stretcher. His legs were placed in frog-leg position. He was prepped and draped. I attempted to perform cystoscopy, but I encountered a very tight bulbar urethral stricture. My intention had been to draw out the distal end of the nephroureteral stent to prevent loss of the access. However, with the bulbar urethral stricture, I was not prepared to perform a DVIU to incise this and therefore I left it. We took out the scope. He was turned over into the prone position. He was then reprepped and redraped. He has a nephrostomy tube colored blue, which used to drain the kidney. He has nephroureteral access catheter, which is colored dark palafox. The nephroureteral catheter was accessed by placing an Amplatz Super Stiff wire down the lumen and down into the bladder. Once the wire was down in the bladder, the nephroureteral catheter was removed entirely. A 1-cm incision was made on each side using #15 blade. A dual-lumen catheter was then introduced over the Super Stiff wire into the proximal ureter. Once the dual lumen catheter was in correct position, the second lumen had a Sensor wire placed down the lumen and into the bladder. Once the 2 wires were in position, OPERATIVE REPORT [id number] SIM LOPEZ JR the dual lumen catheter was removed, leaving the [address] The Sensor wire was clamped to the drapes to act as a safety wire. We worked over the Super Stiff wire. The NephroMax balloon dilator was introduced over the Super Stiff guidewire and placed under fluoroscopic guidance. The stone is seen as a radiodensity which is cranial to the nephroureteral access wire. The access seems to be from a mid to lower pole jonelle. The balloon was inflated to 16 atmospheres of pressure and the working sheath was placed down over the balloon into the renal pelvis. The balloon was then deflated and removed entirely, leaving the working sheath in place. We then placed the nephroscope down the sheath and immediately encountered the large staghorn calculus. The Cypriot LithoClast ultrasonic modality was used. The stone is fairly soft and broke up easily. The Cypriot LithoClast device normally breaks up the stone and also suction out the particles. I used the Cypriot LithoClast device to remove the entire bulk of the entire stone burden. I did not stop to try to basket the pieces as the stone did not fragment into any large clumps. At the end of the procedure, fluoroscopy revealed no further radiodensities. I could not see any further stone and nephroscopy. The scope was then removed. A 24-Icelandic Malecot nephrostomy tube was inserted down the working sheath. The working sheath and the 2 wires were completely removed. The nephrostomy tube was in good position within the renal pelvis. The nephrostomy tube was sutured to the skin using 2-0 nylon. Dressings were then applied. The nephrostomy tube was put to bag drainage. The patient was awakened and brought to the recovery room. He will be transferred from the recovery room back to his home hospital bed. TRANSINT:[id number] Voice Confirmation ID: [id number] DOCUMENT ID: [id number] SUSI LEWIS MD at 0841 CC: [id number] DICTATION DATE: 06/20/19 160 NECK BAND OPERATOR: 06/20/19 1831 ADM IN [facility] [address] [place] [address]
[2019-06-21 08:54] VITALS: BP 96/62
[2019-06-21 09:26] LABS: ANISOCYTOSIS 1+; EOSINOPHILS 1 % (0-7); LYMPHOCYTES 22 % (15-50); MONOCYTES 11 % (2-11); NEUTROPHILS 64 % (40-80); PLATELET ESTIMATE INCREASED; ROULEAUX OCC
--- NOTE | 2019-06-21 09:29 | NUR ---
ATTEMPT MADE TO REPOSITION PT. CAREGIVER AT BEDSIDE. PT IS REFUSING TO REPOSITION TO RIGHT SIDE. PT EDUCATED ON IMPORTANCE OF REPOSITIONING. 1ST STEP OVERLAY MATTRESS IN ON.
--- NOTE | 2019-06-21 12:19 | NUR ---
ATTEMPT MADE TO REPOSITION PT TO BACK AND/OR RIGHT SIDE. PT REFUSING AND YELLING PROFANITIES DEMANDING TO BE PLACED BACK ONTO RIGHT SIDE. MEPILEX DRESSING PLACED TO BILATERAL HEELS. HEEL PROTECTORS IN PLACE. PT IS ON FIRST STEP OVERLAY MATTRESS. PT CAREGIVER AT BEDSIDE REPORTS THAT PT REFUSES TO BE IN ANY OTHER POSITION THAN LAYING ON HIS LEFT SIDE. WILL CONT TO EDUCATE ON IMPORTANCE OF TURNING AND REPOSITIONING AND ATTEMPT TO REPOSITION PT. CONTACT ISOLATION PRECAUTIONS USED.
[2019-06-21 12:32] VITALS: BP 109/65
--- NOTE | 2019-06-21 14:54 | NUR ---
ATTEMPT MADE TO REPOSITION PT. PT IS REFUSING AND USING PROFANE VERBAGE STATING HE DOES NOT WANT TO BE MOVED FROM HIS LEFT SIDE. CAREGIVER AT BEDSIDE STATES THAT HE FAVORS HIS RIGHT SIDE AND DOESN;T LIKE TO REPOSITION "EVEN AT HOME". PT IS ON FIRST STEP OVERLAY MATTRESS. HEEL PROTECTORS IN PLACE. BED IS IN THE LOWEST POSITION. CALL LIGHT AND BEDSIDE TABLE ARE WITHIN REACH. SIDE RAILS X 2. WILL CONT TO MONITOR.
--- NOTE | 2019-06-21 16:42 | NUR ---
ATTEMPT MADE TO REPOSITION PT. PT REFUSES REPOSITIONING AT THIS TIME. PT IS ON FIRST STEP OVERLAY. CAREGIVER IS AT BEDSIDE. PT ENCOURAGED TO TCDB. PT CONTINUES TO REFUSE REPOSITIONING. BED IS IN THE LOWEST POSITION. CALL LIGHT AND BEDSIDE TABLE ARE WITHIN REACH SIDE RAILS X 2. WILL CONT TO MONITOR.
[2019-06-21 16:44] VITALS: BP 103/63
--- NOTE | 2019-06-21 20:00 | NUR ---
ALERT CONFUSED LOWER EXTREMITIES CONTRACTED, SUPRAPUBIC CATH DRAING BLOOD TINGED URINE, RIGHT NEPHROSTOMY TUBE DRAING BLOODY URINE AND LEFT NEPHROSTOMY NO DRAINAGE NOTED, SEE SHIFT ASESSMENT, CALL LIGHT IN REACH
[2019-06-21 20:43] VITALS: BP 115/76
[2019-06-22 00:20] VITALS: BP 115/70
[2019-06-22 06:03] LABS: ALBUMIN 1.4 g/dL (3.4-5.0); ANION GAP 13.5 mmol/L (8-16); BILIRUBIN - TOTAL 0.18 mg/dL (0.2-1.3); CALCIUM 9.1 mg/dL (8.5-10.1); CARBON DIOXIDE 22.6 mmol/L (21.0-32.0); CREATININE - SERUM 1.6 mg/dL (0.6-1.3); MAGNESIUM - SERUM 2.3 mg/dL (1.8-2.4); POTASSIUM - SERUM 4.1 mmol/L (3.5-5.1); PROTEIN - SERUM 7.7 g/dL (6.4-8.2)
[2019-06-22 06:17] VITALS: BP 115/75
[2019-06-22 06:18] LABS: BASOPHILS 0.3 % (0-2); EOSINOPHILS 1.7 % (0-7); HEMATOCRIT 29.4 % (42.0-54.0); HEMOGLOBIN 9.2 g/dL (13.5-17.5); IMMATURE GRANULOCYTES 2.8 % (0-5); LYMPHOCYTES 31.4 % (15-50); MCH 26.4 pg (26.0-34.0); MCHC 31.3 g/dL (31.0-37.0); MCV 84.2 fL (80.0-100.0); MEAN PLATELET VOLUME 10.3 fL (7.4-10.4); MONOCYTES 14.7 % (2-11); NEUTROPHILS 49.1 % (40-80); PLATELET COUNT 427 10x3/uL (130-400); RBC 3.49 10x6/uL (4.20-6.10); RDW 20.8 % (11.5-14.5); WBC 5.8 10x3/uL (4.8-10.8)
--- NOTE | 2019-06-22 08:56 | NUR ---
PATIENT IN BED. ROYER HOT STAMP OPERATOR IN ROOM. NPO FOR CT TO SEE IF LEFT NEPHROSTOMY IS OUT OF PLACE. CL IN REACH. WCTM
[2019-06-22 08:58] VITALS: BP 136/78
--- NOTE | 2019-06-22 09:01 | PN ---
PATIENT:SIM LOPEZ JR MEDICAL RECORD: [id number] LOCATION:[facility] ADMISSION DATE: 06/06/19 PROGRESS NOTE DATE OF SERVICE: 06/21/2019 SUBJECTIVE: The patient's case was discussed with staff and the chart was reviewed. OBJECTIVE: The patient is not having any suicidal or homicidal thoughts. He is having some significant irritability and mood lability. Medically, he is tentatively scheduled to be discharged tomorrow. ASSESSMENT: 1. Probable delirium secondary to multiple medical factors. 2. Probable mood disorder consistent with bipolar condition. PLAN: The patient will have a Depakote level checked. It was checked a few days ago and was very significantly subtherapeutic in a manner that was probably not consistent with compliance. There is no real evidence of dangerousness. He does have 24-hour a day caregivers and I would recommend outpatient mental health followup. Depakote level should be below 120 and certainly above 50. I am going to continue him on the antipsychotic for his thought disorganization. That is likely something that can be discontinued soon as an outpatient. Again, outpatient mental health followup is recommended. Medically, he is no longer needing to be hospitalized and there is no criteria for an inpatient psychiatric hospitalization. TRANSINT:[id number] Voice Confirmation ID: [id number] DOCUMENT ID: [id number] TIERRA KAUFMAN MD at 0901 CC: [id number] DICTATION DATE: 06/21/19 1456 COUNSELOR AT LAW: 06/21/19 1529 ADM IN [facility] [address] [place] [address]
--- NOTE | 2019-06-22 14:05 | NUR ---
PATIENT LAYING IN BED. LEGS REPOSITIONED BY CAREGIVER. CL IN REACH. NO FURTHER NEEDS AT THIS TIME. REQUESTS I LET HER KNOW IF WE ARE DISCHARGING OR NOT TO MAKE SURE THEY HAVE COVERAGE WHEN THEY GO HOME. IVETTE
[2019-06-22 17:15] VITALS: BP 111/68
--- NOTE | 2019-06-22 18:38 | NUR ---
CAREGIVER ROYER CALLED AMANDA COX ON HER PERSONAL CELL PHONE. WHILE ON SPEAKER Natasha JENKINS RN AND I RECEIVED CONSENT FOR THE PROCEDURE. ROYER STATED THAT PT HAS HAD 3 ENSURES TODAY. CL IN REACH. NO FURTHER NEEDS AT THIS TIME. WCTM
[2019-06-22 20:00] VITALS: BP 116/71
[2019-06-23] VITALS (7 sets, daily range): BP systolic 100–148; BP diastolic 56–73
--- NOTE | 2019-06-23 04:20 | NUR ---
I have reviewed this patient and I concur with the Shift Assessment completed by the Licensed Practical Nurse today this shift.
--- NOTE | 2019-06-23 05:14 | NUR ---
I have reviewed this patient and I concur with the Shift Assessment completed by the Licensed Practical Nurse today this shift.
--- NOTE | 2019-06-23 07:00 | NUR ---
PT IS RESTING IN BED WITH EYES OPEN. RESPIRATIONS ARE EVEN AND UNLABORED. PT IS ALERT AND ORIENTED TO SELF AND TIME ONLY. CAREGIVER AT BEDSIDE REORIENTATION ATTEMPTED. CONTACT ISOLATION PRECAUTIONS IN PLACE. SUPRAPUBIC CATHETER NOTED AND DRAINING WITHOUT DIFFICULTY. LIGHT RED DRAINAGE NOTED TO COLLECTION BAG. RIGHT FLANK DRESSING IN PLACE AND CDI. LEFT NEPHROSTOMY IN PLACE. DRESSING IS CDI. BILATERAL HEEL DRESSINGS IN PLACE WITH HEEL PROTECTORS. PT IS ON FIRST STEP OVERLAY MATTRESS. PT REFUSES REPOSITIONING AT THIS TIME. PIV TO RIGHT WRIST IN PLACE AND INFUSING AT KVO WITHOUT DIFFICULTY. CAREGIVER STATES CONCERNS RELATED TO PT NOT HAVING HAD A BM SINCE "LAST WEDNESDAY" (06/15/19). BS ACITVE X 4. CAREGIVER STATES THAT THE PT "ISNT REALLY GASSY" AND PT IS NOT ANSWERING APPROPRIATELY. BED IS IN THE LOWEST POSITION. CALL LIGHT AND BEDSIDE TABLE ARE WITHIN REACH. SIDE RAILS X 2. WILL CONT TO MONITOR.
[2019-06-23 07:04] LABS: BASOPHILS 0.7 % (0-2); EOSINOPHILS 2.2 % (0-7); HEMATOCRIT 31.9 % (42.0-54.0); HEMOGLOBIN 9.7 g/dL (13.5-17.5); LYMPHOCYTES 30.9 % (15-50); MCH 26.5 pg (26.0-34.0); MCHC 30.4 g/dL (31.0-37.0); MEAN PLATELET VOLUME 9.6 fL (7.4-10.4); NEUTROPHILS 48.2 % (40-80); PLATELET COUNT 422 10x3/uL (130-400); RBC 3.66 10x6/uL (4.20-6.10); RDW 21.8 % (11.5-14.5); WBC 4.5 10x3/uL (4.8-10.8)
[2019-06-23 07:11] LABS: APTT 46.6 SECONDS (22.8-39.4); INR 1.13 (0.85-1.17); PROTIME 14.5 SECONDS (11.6-15.0)
[2019-06-23 07:15] LABS: MCV 87.2 fL (80.0-100.0)
[2019-06-23 07:30] LABS: ALBUMIN 1.5 g/dL (3.4-5.0); ANION GAP 11.8 mmol/L (8-16); BILIRUBIN - TOTAL 0.18 mg/dL (0.2-1.3); CALCIUM 9.2 mg/dL (8.5-10.1); CARBON DIOXIDE 27.1 mmol/L (21.0-32.0); CREATININE - SERUM 1.6 mg/dL (0.6-1.3); MAGNESIUM - SERUM 2.3 mg/dL (1.8-2.4); POTASSIUM - SERUM 3.9 mmol/L (3.5-5.1); PROTEIN - SERUM 7.9 g/dL (6.4-8.2)
--- NOTE | 2019-06-23 09:09 | NUR ---
PT TRANSPORTED OFF FLOOR VIA BED FOR PROCEDURE
--- NOTE | 2019-06-23 10:31 | NUR ---
PT ARRIVES BACK TO FLOOR VIA BED ESCORTED BY IR STAFF. CAREGIVER AT BEDSIDE. PT IS AAO X 1. ATTEMPT MADE TO REORIENT. UNSUCCESSFUL. DRESSING TO RIGHT FLANK IS CDI. NEPHROSTOMY NOTED TO LEFT FLANK DRAINING LIGHT PINK FLUID. VSS SEE FLOWSHEET. FIRST STEP OVERLAY MATTRESS IN PLACE NAD WORKING. SUPRAPUBIC CATHETER NOTED AND DRAINING LIGHT RED FLUID WITHOUT DIFFICULTY. BED IS IN THE LOWEST POSITION. CALL LIGHT AND BEDSIDE TABLE ARE WITHIN REACH. SIDE RAILS X 2. WILL CONT TO MONITOR.
--- NOTE | 2019-06-23 11:25 | EC ---
PATIENT:SIM LOPEZ JR DATE OF SERVICE: 06/06/19 SEX: M MEDICAL RECORD: [id number] DATE OF : 62 LOCATION:[facility] AGE OF PATIENT: 59 ADMISSION DATE: 06/06/19 REFERRING PHYSICIAN: INTERPRETING PHYSICIAN: CARLOS STEWART MD ECHOCARDIOGRAM REPORT ECHO CHARGES 4 ECHO COMPLETE Date: 06/09/19 CLINICAL DIAGNOSIS: SOB ECHOCARDIOGRAPHIC MEASUREMENTS (adult normal given) AC root (d.<3.7cm) 3.2 cm LV Septum d (<1.2 cm> 0.9 cm Valve Excursion 1.6 cm LV Septum (systole) 1.0 cm Left Atria (s.<4.0cm> 3.6 cm LVPW d(<1.2cm) 0.9 cm RV (d.<2.3cm) 3.3 cm LVPW (sytole) 1.1 cm LV diastole(<5.6CM) 5.5 cm MV E-F(>70mm/sec) cm LV systole 4.7 cm LVOT Diameter 2.0 cm MV exc.(>10mm) cm Est.ejection fraction (50-75%) % DOPPLER: LVIT cm/sec A 99 cm/sec E 111 cm/sec LA cm/sec RVSP 41.6 mmHg LVOT 128 cm/sec AOP1/2T m/s Asc. Ao 211 cm/sec RVOT 81 cm/sec RA cm/sec PA 99 cm/sec AV Gradient Peak 17.8 mmHg AV Mean 10.0 mmHg AV Area 2.2 cm MV Gradient Peak 5.9 mmHg MV Mean 3.8 mmHg MV Area cm COMMENTS: Salvage Machine Operator: Farooq [facility] Communications Instructor: 1 Dr. Stewart TAPE# PACS Pericardial Effusion N DATE OF SERVICE: FINDINGS: 1. Left ventricular chamber size is within normal limits. Left ventricular systolic function is mildly reduced at 40%. 2. Left atrium is within normal limits. Right atrium and right ventricular chamber sizes are mildly dilated. 3. Valvular structures have normal structure and motion. 4. Doppler interrogation only reveals trace tricuspid regurgitation, no other valvular insufficiency or stenosis. ECHOCARDIOGRAM REPORT [id number] SIM LOPEZ JR 5. No evidence of pericardial effusion or left ventricular thrombus. TRANSINT:[id number] Voice Confirmation ID: [id number] DOCUMENT ID: [id number] CARLOS STEWART MD at 1125 CC: [id number] DICTATION DATE: 06/09/19 1612 TIP OUT WORKER: 06/09/19 2303 ADM IN [place] [address] [place] [id number]
--- NOTE | 2019-06-23 13:35 | MORECARE ---
CASE MANAGEMENT DISCHARGE SUMMARY PATIENT: SIM LOPEZ JR UNIT: [id number] ADM DATE: 06/06/19 AGE: 59 : 62 SEX: M ROOM/BED: D.2213 AUTHOR: DOROTA,DOC PHYSICIAN: REFERRING PHYSICIAN: YVONNE HOWELL MD DATE OF SERVICE: 06/23/19 Discharge Plan Patient Name: SIM LOPEZ Facility: [facility]:[place] : 1960 Planned Disposition: Home with Home Health Anticipated Discharge Date: Discharge Date: Expected LOS: Initial Reviewer: [email or web address] Initial Review Date: 06/06/2019 Generated: 06/23/19 2:34 pm Comments DCP- Discharge Planning Updated by [id number]: Vernell Ravi on 06/23/19 12:[address] DC PLAN: HOME WITH MOTHER (POA) AND 24/7 CAREGIVERS. SPOKE TO [facility]'S WORKERS COMP SAVINGS TELLER BENITEZ, . SHE REQUESTED UPDATE BE FAXED TO HER SO SHE COULD GET OP MENTAL HEALTH APPOINTMETN SET UP RECOMMENDED BY DR. KAUFMAN. CM FAXED REQUESTED INFO ALONG WITH DC INFORMATION. CG'S DENIED FURHTER DC NEEDS. VERNELL RAVI RN, [facility] DCP- Discharge Planning Updated by [id number]: Laura Ramirez on 06/09/19 5:[address] Patient Name: SIM LOPEZ Admission Status: ER Accout number: [id number] Admission Date: 06-06-2019 : 1960 Admission Diagnosis:SEPSIS, UNSPECIFIED ORGANISM Attending: JESSICA HOWELL Current LOS: 3 Anticipated DC Date: Planned Disposition: HOME W HH, 24HR CARE GIVERS Primary Insurance: MEDICARE A & B Discharge Planning Comments: Patient is currently on vent sedated at this time. CM spoke with patient;s mother Venecia [phone]. Patient lives at home with his mother. Patient has 24 hr caregivers with home instead he also has home health with [facility]. MANISH signed to resume care with both. Patient has a patient case coordinator Benitez that will help assist as needed [phone] she asked for clinicals to be sent. She stated that patient had a spinal injury while at work and she works for [employer]. She states that has been his patient case coordinator since 2008. CM will have to contact patient's mother and make sure it is alright to release information to Benitez fax [phone]. CM will continue to follow and assist as needed with discharge planning / needs. Line Builder: Laura Ramirez DCPIA - Discharge Planning Initial Assessment Updated by [email or web address]: Laura Ramirez on 06/09/19 6:53 pm * How many steps to enter\exit or inside your home? * Pharmacy [facility] * Preadmission Environment Home with Family * ADLs Total Dependent * Equipment Power Chair or Electric Scooter * List name and contact numbers for known caregivers / representatives who currently or will assist patient after discharge: VENECIA Day MOTHER - [phone] * Verbal permission to speak to the caregivers and representatives has been obtained from the patient. N/A * Community resources currently utilized Private Duty Care * Please name any agencies selected above. [facility] * Additional services required to return to the preadmission environment? No * Can the patient safely return to the preadmission environment? Yes * Has this patient been hospitalized within the prior 30 days at any hospital? No Coverage Notice Reviewer: [id number] - Laura Ramirez Notice Issued Date-Time: 06/09/2019 19:08 Notice Type: Patient Choice Letter Notice Delivered To: Family Member Relationship to Patient: Mother Route Service Manager Name: Delivery Method: PHONE - Phone Valerie Days: Prior Verbal Notification: Yes Recipient Understood Notice: Yes Recipient Signature: Prem Rec Note Co-signed by Attending: Coverage Notice Comment: resume [facility] HH resume [facility] Last DP export: 06/13/19 3:20 p Patient Name: SIM LOPEZ Page 20176 at 1335 All edits/amendments must be made on the electronic document DICTATION DATE: 06/23/191333 PIG CASTING MACHINE OPERATOR: JAXON 06/23/191333 RPT#: [id number] DC DATE: STATUS: ADM IN [facility] [address] [place] [address] END OF REPORT
--- NOTE | 2019-06-23 13:42 | MORECARE ---
CASE MANAGEMENT DISCHARGE SUMMARY PATIENT: SIM LOPEZ JR UNIT: [id number] ADM DATE: 06/06/19 AGE: 59 : 62 SEX: M ROOM/BED: D.2213 AUTHOR: DOROTA,DOC PHYSICIAN: REFERRING PHYSICIAN: YVONNE HOWELL MD DATE OF SERVICE: 06/23/19 Discharge Plan Patient Name: SIM LOPEZ Facility: [facility]:[place] : 1960 Planned Disposition: Home with Home Health Anticipated Discharge Date: Discharge Date: Expected LOS: Initial Reviewer: [email or web address] Initial Review Date: 06/06/2019 Generated: 06/23/19 2:41 pm Comments DCP- Discharge Planning Updated by [email or web address]: Vernell Ravi on 06/23/19 12:[address] DC PLAN: HOME WITH MOTHER (POA) AND 24/7 CAREGIVERS. SPOKE TO [facility]'S WORKERS COMP TOBACCO PACKER BENITEZ, . SHE REQUESTED UPDATE BE FAXED TO HER SO SHE COULD GET OP MENTAL HEALTH APPOINTMETN SET UP RECOMMENDED BY DR. KAUFMAN. CM FAXED REQUESTED INFO ALONG WITH DC INFORMATION. CG'S DENIED FURHTER DC NEEDS. VERNELL RAVI RN, [facility] DCP- Discharge Planning Updated by [id number]: Laura Ramirez on 06/09/19 5:[address] Patient Name: SIM LOPEZ Admission Status: ER Accout number: [id number] Admission Date: 06-06-2019 : 1960 Admission Diagnosis:SEPSIS, UNSPECIFIED ORGANISM Attending: JESSICA HOWELL Current LOS: 3 Anticipated DC Date: Planned Disposition: HOME W HH, 24HR CARE GIVERS Primary Insurance: MEDICARE A & B Discharge Planning Comments: Patient is currently on vent sedated at this time. CM spoke with patient;s mother Venecia [phone]. Patient lives at home with his mother. Patient has 24 hr caregivers with home instead he also has home health with [facility]. MANISH signed to resume care with both. Patient has a case sealer Benitez that will help assist as needed [phone] she asked for clinicals to be sent. She stated that patient had a spinal injury while at work and she works for [employer]. She states that has been his case sealer since 2008. CM will have to contact patient's mother and make sure it is alright to release information to Benitez fax [phone]. CM will continue to follow and assist as needed with discharge planning / needs. Drug Enforcement Agent: Laura Ramirez DCPIA - Discharge Planning Initial Assessment Updated by [email or web address]: Laura Ramirez on 06/09/19 6:53 pm * How many steps to enter\exit or inside your home? * Pharmacy [facility] * Preadmission Environment Home with Family * ADLs Total Dependent * Equipment Power Chair or Electric Scooter * List name and contact numbers for known caregivers / representatives who currently or will assist patient after discharge: VENECIA Day MOTHER - [phone] * Verbal permission to speak to the caregivers and representatives has been obtained from the patient. N/A * Community resources currently utilized Private Duty Care * Please name any agencies selected above. [facility] * Additional services required to return to the preadmission environment? No * Can the patient safely return to the preadmission environment? Yes * Has this patient been hospitalized within the prior 30 days at any hospital? No External Providers External Provider: OTHER-OTHER Next Contact Date: Service Request Date: Service Type: Resolution: Reviewer: Comments: Coverage Notice Reviewer: [id number] - Laura Ramirez Notice Issued Date-Time: 06/09/2019 19:08 Notice Type: Patient Choice Letter Notice Delivered To: Family Member Relationship to Patient: Mother Production Control Technologist Name: Delivery Method: PHONE - Phone Valerie Days: Prior Verbal Notification: Yes Recipient Understood Notice: Yes Recipient Signature: Med Rec Note Co-signed by Attending: Coverage Notice Comment: resume [facility] HH resume [facility] Last DP export: 06/23/19 12:34 p Patient Name: SIM LOPEZ Page 63633 at 1342 All edits/amendments must be made on the electronic document DICTATION DATE: 06/23/19 1342 DIRECTOR ZONE: JAXON 06/23/19 1342 RPT#: [id number] DC DATE: STATUS: ADM IN [facility] [address] [place] [address] END OF REPORT
[2019-06-23] MEDS ORDERED: ROBITUSSIN DM 110 ML NG (14:28)
[2019-06-23] MEDS ORDERED: FLORAJEN3 CAPS460 MG PO (14:28)
[2019-06-23] MEDS ORDERED: GEODON20 MG PO (14:28)
[2019-06-23] MEDS ORDERED: DEPAKOTE500 MG PO (14:28)
[2019-06-23] MEDS ORDERED: VIBRAMYCIN 100100 MG PO (14:29)
[2019-06-23] MEDS ORDERED: KEFLEX500 MG PO (14:29)
[2019-06-23] MEDS ORDERED: Levaquin PO (14:30)
--- NOTE | 2019-06-23 14:45 | NUR ---
PT CAREGIVER EXPRESS CONCERNS RELATED TO "RIDE HOME"; AND PT NOT HAVING HAD GEODON THIS AM DUE TO NPO STATUS. PT CAREGIVER REQUESTS DOSE PRIOR TO DISCHARGE. SINDHU EPPERSON APRN ON FLOOR AND NOTIFIED OF CAREGIVER CONCERN. VERBAL ORDERS RECD ARE GEODON 20MG PO X [address] WILL PL[address] ORDERS.
--- NOTE | 2019-06-23 15:20 | MORECARE ---
CASE MANAGEMENT DISCHARGE SUMMARY PATIENT: SIM LOPEZ JR UNIT: [id number] ADM DATE: 06/06/19 AGE: 59 : 62 SEX: M ROOM/BED: D.2213 AUTHOR: DOROTA,DOC PHYSICIAN: REFERRING PHYSICIAN: YVONNE HOWELL MD DATE OF SERVICE: 06/23/19 Discharge Plan Patient Name: SIM LOPEZ Facility: [facility]:[place] : 1960 Planned Disposition: Home with Home Health Anticipated Discharge Date: Discharge Date: Expected LOS: Initial Reviewer: [email or web address] Initial Review Date: 06/06/2019 Generated: 06/23/19 4:20 pm Comments DCP- Discharge Planning Updated by [id number]: Vernell Ravi on 06/23/19 2:[address] DC PLAN: Will need SNF placement for BID Flushes Spoke to patient's mother Venecia Dong [phone], POA who gave telephone verbal consent for [facility] and second choice is [facility]. [facility] (P) [phone] (F) [phone]. Faxed referral to [facility], She stated they accept patients over the weekend as well. Referral faxed. Vernell Ravi RN, [facility] DCP- Discharge Planning Updated by [email or web address]: Vernell Ravi on 06/23/19 12:[address] DC PLAN: HOME WITH MOTHER (POA) AND 24/7 CAREGIVERS. SPOKE TO [employer]'S WORKERS COMP ARTIFICIAL CANDY MAKER BENITEZ, . SHE REQUESTED UPDATE BE FAXED TO HER SO SHE COULD GET OP MENTAL HEALTH APPOINTMETN SET UP RECOMMENDED BY DR. KAUFMAN. CM FAXED REQUESTED INFO ALONG WITH DC INFORMATION. CG'S DENIED FURHTER DC NEEDS. VERNELL RAVI RN, [facility] DCP- Discharge Planning Updated by [id number]: Laura Ramirez on 06/09/19 5:[address] Patient Name: SIM LOPEZ Admission Status: ER Accout number: [id number] Admission Date: 06-06-2019 : 1960 Admission Diagnosis:SEPSIS, UNSPECIFIED ORGANISM Attending: JESSICA HOWELL Current LOS: 3 Anticipated DC Date: Planned Disposition: HOME W HH, 24HR CARE GIVERS Primary Insurance: MEDICARE A & B Discharge Planning Comments: Patient is currently on vent sedated at this time. CM spoke with patient;s mother Venecia [phone]. Patient lives at home with his mother. Patient has 24 hr caregivers with home instead he also has home health with [facility]. MANISH signed to resume care with both. Patient has a human services case manager Benitez that will help assist as needed [phone] she asked for clinicals to be sent. She stated that patient had a spinal injury while at work and she works for [employer]. She states that has been his human services case manager since 2008. CM will have to contact patient's mother and make sure it is alright to release information to Benitez fax [phone]. CM will continue to follow and assist as needed with discharge planning / needs. Clinical Research Scientist: Laura Ramirez DCPIA - Discharge Planning Initial Assessment Updated by [id number]: Laura Ramirez on 06/09/19 6:53 pm * How many steps to enter\exit or inside your home? * Pharmacy [facility] * Preadmission Environment Home with Family * ADLs Total Dependent * Equipment Power Chair or Electric Scooter * List name and contact numbers for known caregivers / representatives who currently or will assist patient after discharge: VENECIA PIERCE - [phone] * Verbal permission to speak to the caregivers and representatives has been obtained from the patient. N/A * Community resources currently utilized Private Duty Care * Please name any agencies selected above. [facility] * Additional services required to return to the preadmission environment? No * Can the patient safely return to the preadmission environment? Yes * Has this patient been hospitalized within the prior 30 days at any hospital? No Coverage Notice Reviewer: [id number] - Laura Ramirez Notice Issued Date-Time: 06/09/2019 19:08 Notice Type: Patient Choice Letter Notice Delivered To: Family Member Relationship to Patient: Mother Official Court Reporter Name: Delivery Method: PHONE - Phone Valerie Days: Prior Verbal Notification: Yes Recipient Understood Notice: Yes Recipient Signature: Med Rec Note Co-signed by Attending: Coverage Notice Comment: resume [facility] HH resume [facility] Last DP export: 06/23/19 12:42 p Patient Name: SIM LOPEZ Page 63619 at 1520 All edits/amendments must be made on the electronic document DICTATION DATE: 06/23/19 152 SUPPLIES PACKER: JAXON 06/23/191519 RPT#: [id number] DC DATE: STATUS: ADM IN [facility] [address] [place] [address] END OF REPORT
--- NOTE | 2019-06-23 15:36 | MORECARE ---
CASE MANAGEMENT DISCHARGE SUMMARY PATIENT: SIM LOPEZ JR UNIT: [id number] ADM DATE: 06/06/19 AGE: 59 : 62 SEX: M ROOM/BED: D.2213 AUTHOR: DOROTA,DOC PHYSICIAN: REFERRING PHYSICIAN: YVONNE HOWELL MD DATE OF SERVICE: 06/23/19 Discharge Plan Patient Name: SIM LOPEZ Facility: [facility]:[place] : 1960 Planned Disposition: Home with Home Health Anticipated Discharge Date: Discharge Date: Expected LOS: Initial Reviewer: [email or web address] Initial Review Date: 06/06/2019 Generated: 06/23/19 4:36 pm Comments DCP- Discharge Planning Updated by [email or web address]: Vernell Ravi on 06/23/19 2:[address] DC PLAN: RETURN HOME WITH [facility] HH. SISTER IS TEACHABLE CG AND AGREED TO STAY WITH PATIENT FOR REQHIRED Q 12 HOUR FLUSHES. CM SPOKE TO ANKIT AT [facility] WHO STATED THEY WILL ACCEPT PATIENT BACK NOW SINCE HE HAS A TEACHABLE CG (HIS SISTER). ANKIT STATED THEY CAN ORDER HIS NS FLUSHES. CM FAXED REFERRAL AND DC INFORMATION TO [phone]. VERNELL RAVI RN, CCM ADDENDUM: [facility] had refused to accept patient back due to no teachable cg to flush drain. They report the mother has dementia and the cg's that work for home instead are not allowed to flush the drain . DCP- Discharge Planning Updated by [id number]: Vernell Ravi on 06/23/19 2:[address] DC PLAN: Will need SNF placement for BID Flushes Spoke to patient's mother Amanda Dong [phone], POA who gave telephone verbal consent for [facility] and second choice is [facility]. [facility] (P) [phone] (F) [phone]. Faxed referral to [facility], She stated they accept patients over the weekend as well. Referral faxed. Vernell Ravi RN, [facility] DCP- Discharge Planning Updated by [email or web address]: Vernell Ravi on 06/23/19 12:[address] DC PLAN: HOME WITH MOTHER (ZOYA) AND 24/7 CAREGIVERS. SPOKE TO [facility] COMP KNOCKOUT MAN BENITEZ, . SHE REQUESTED UPDATE BE FAXED TO HER SO SHE COULD GET OP MENTAL HEALTH APPOINTMETN SET UP RECOMMENDED BY DR. KAUFMAN. CM FAXED REQUESTED INFO ALONG WITH DC INFORMATION. CG'S DENIED FURHTER DC NEEDS. VERNELL RAVI RN, [facility] DCP- Discharge Planning Updated by [email or web address]: Laura Ramirez on 06/09/19 5:[address] Patient Name: SIM LOPEZ Admission Status: ER Accout number: [id number] Admission Date: 06-06-2019 : 1960 Admission Diagnosis:SEPSIS, UNSPECIFIED ORGANISM Attending: JESSICA HOWELL Current LOS: 3 Anticipated DC Date: Planned Disposition: HOME W HH, 24HR CARE GIVERS Primary Insurance: MEDICARE A & B Discharge Planning Comments: Patient is currently on vent sedated at this time. CM spoke with patient;s mother Amanda [phone]. Patient lives at home with his mother. Patient has 24 hr caregivers with home instead he also has home health with [facility]. MANISH signed to resume care with both. Patient has a casework supervisor Benitez that will help assist as needed [phone] she asked for clinicals to be sent. She stated that patient had a spinal injury while at work and she works for [employer]. She states that has been his casework supervisor since 2008. CM will have to contact patient's mother and make sure it is alright to release information to Benitez fax [phone]. CM will continue to follow and assist as needed with discharge planning / needs. Jointer Machine Operator: Laura Ramirez DCPIA - Discharge Planning Initial Assessment Updated by [email or web address]: Laura Ramirez on 06/09/19 6:53 pm * How many steps to enter\exit or inside your home? * Pharmacy [facility] * Preadmission Environment Home with Family * ADLs Total Dependent * Equipment Power Chair or Electric Scooter * List name and contact numbers for known caregivers / representatives who currently or will assist patient after discharge: AMANDA - MOTHER - [phone] * Verbal permission to speak to the caregivers and representatives has been obtained from the patient. N/A * Community resources currently utilized Private Duty Care * Please name any agencies selected above. [facility] * Additional services required to return to the preadmission environment? No * Can the patient safely return to the preadmission environment? Yes * Has this patient been hospitalized within the prior 30 days at any hospital? No Coverage Notice Reviewer: [email or web address] Shay Ramirez Notice Issued Date-Time: 06/09/2019 19:08 Notice Type: Patient Choice Letter Notice Delivered To: Family Member Relationship to Patient: Mother Pluck Trimmer Name: Delivery Method: PHONE - Phone Valerie Days: Prior Verbal Notification: Yes Recipient Understood Notice: Yes Recipient Signature: Med Rec Note Co-signed by Attending: Coverage Notice Comment: resume [facility] HH resume [facility] Last DP export: 06/23/19 2:20 p Patient Name: SIM LOPEZ Page 28510 at 1536 All edits/amendments must be made on the electronic document DICTATION DATE: 06/23/19 1536 SUPERINTENDENT SYSTEM OPERATION: JAXON 06/23/19 1536 RPT#: [id number] DC DATE: STATUS: ADM IN [facility] [address] [place] [address] END OF REPORT
--- NOTE | 2019-06-23 16:47 | NUR ---
ALL DISCHARGE INSTRUCTIONS COVERED WITH PT AND PT CAREGIVER. (1) PRINTED RX GIVEN TO PT CAREGIVER. PT CAREGIVER SIGNS ALL DISCHARGE PAPERS. PIV TO PT RIGHT WRIST REMOVED WITH CATHETER TIP INTACT. LEFT NEPHROSTOMY EMPTIED AND SUPRAPUBIC CATHETER COLLECTION BAG EMPTIED. SUPPLIES FOR NEPHROSTOMY TUBE FLUSH SENT WITH PT CAREGIVER. PT REFUSES TO WEAR PAPER SCRUBS. GOWN PLACED OVER PT. PT CAREGIVER AND PT DENY FURTHER QUESTIONS/CONCERNS/NEEDS AT THIS TIME. AMBULANCE NOTIFIED OF NEED FOR TRANSPORTATION. WILL WAIT FOR TRANSPORT TO ARRIVE.
--- NOTE | 2019-06-23 17:55 | NUR ---
PT TRANSPORTED FROM FLOOR VIA STRETCHER BY AMBULANCE STAFF FOR [facility]. PT CAREGIVER AT BEDSIDE WITH PERSONAL BELONGINS. PT CAREGIVER DENIES FURTHER NEEDS.
--- NOTE | 2019-06-24 13:21 | MORECARE ---
CASE MANAGEMENT DISCHARGE SUMMARY PATIENT: SIM LOPEZ JR UNIT: [id number] ADM DATE: 06/06/19 AGE: 59 : 62 SEX: M ROOM/BED: D.2213 AUTHOR: DOROTA,DOC PHYSICIAN: REFERRING PHYSICIAN: YVONNE HOWELL MD DATE OF SERVICE: 06/24/19 Discharge Plan Patient Name: SIM LOPEZ Facility: [facility]:[place] : 1960 Planned Disposition: Home with Home Health Anticipated Discharge Date: Discharge Date: 06/23/2019 Expected LOS: Initial Reviewer: [email or web address] Initial Review Date: 06/06/2019 Generated: 06/24/19 2:21 pm Comments DCP- Discharge Planning Updated by [email or web address]: Vernell Ravi on 06/23/19 2:[address] DC PLAN: RETURN HOME WITH [facility]. SISTER IS TEACHABLE CG AND AGREED TO STAY WITH PATIENT FOR REQHIRED Q 12 HOUR FLUSHES. CM SPOKE TO ANKIT AT [facility] WHO STATED THEY WILL ACCEPT PATIENT BACK NOW SINCE HE HAS A TEACHABLE CG (HIS SISTER). ANKIT STATED THEY CAN ORDER HIS NS FLUSHES. CM FAXED REFERRAL AND DC INFORMATION TO [phone]. VERNELL RAVI RN, CCM ADDENDUM: [facility] had refused to accept patient back due to no teachable cg to flush drain. They report the mother has dementia and the cg's that work for home instead are not allowed to flush the drain . DCP- Discharge Planning Updated by [email or web address]: Vernell Ravi on 06/23/19 2:[address] DC PLAN: Will need SNF placement for BID Flushes Spoke to patient's mother Amanda Dong [phone], POArtie who gave telephone verbal consent for [facility] and second choice is [facility]. [facility] (P) [phone] (F) [phone]. Faxed referral to [facility], She stated they accept patients over the weekend as well. Referral faxed. Vernell Ravi RN, [facility] DCP- Discharge Planning Updated by [email or web address]: Vernell Ravi on 06/23/19 12:[address] DC PLAN: HOME WITH MOTHER (ZOYA) AND 24/7 CAREGIVERS. SPOKE TO [employer] COMP TEXTILE SCREEN MAKER BENITEZ, . SHE REQUESTED UPDATE BE FAXED TO HER SO SHE COULD GET OP MENTAL HEALTH APPOINTMETN SET UP RECOMMENDED BY DR. KAUFMAN. CM FAXED REQUESTED INFO ALONG WITH DC INFORMATION. CG'S DENIED FURHTER DC NEEDS. VERNELL RAVI RN, [facility] DCP- Discharge Planning Updated by [id number]: Laura Ramirez on 06/09/19 5:[address] Patient Name: SIM LOPEZ Admission Status: ER Accout number: [id number] Admission Date: 06-06-2019 : 1960 Admission Diagnosis:SEPSIS, UNSPECIFIED ORGANISM Attending: JESSICA HOWELL Current LOS: 3 Anticipated DC Date: Planned Disposition: HOME W HH, 24HR CARE GIVERS Primary Insurance: MEDICARE A & B Discharge Planning Comments: Patient is currently on vent sedated at this time. CM spoke with patient;s mother Amanda [phone]. Patient lives at home with his mother. Patient has 24 hr caregivers with home instead he also has home health with [facility]. MANISH signed to resume care with both. Patient has a rn case mgr Benitez that will help assist as needed [phone] she asked for clinicals to be sent. She stated that patient had a spinal injury while at work and she works for [employer]. 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 CM will have to contact patient's mother and make sure it is alright to release information to Benitez fax [phone]. CM will continue to follow and assist as needed with discharge planning / needs. Financial Analysis Advisor: Laura Ramirez DCPIA - Discharge Planning Initial Assessment Updated by [id number]: Laura Ramirez on 06/09/19 6:53 pm * How many steps to enter\exit or inside your home? * Pharmacy [facility] * Preadmission Environment Home with Family * ADLs Total Dependent * Equipment Power Chair or Electric Scooter * List name and contact numbers for known caregivers / representatives who currently or will assist patient after discharge: AMANDA - MOTHER - [phone] * Verbal permission to speak to the caregivers and representatives has been obtained from the patient. N/A * Community resources currently utilized Private Duty Care * Please name any agencies selected above. [facility] * Additional services required to return to the preadmission environment? No * Can the patient safely return to the preadmission environment? Yes * Has this patient been hospitalized within the prior 30 days at any hospital? No Coverage Notice Reviewer: [id number] Shay Ramirez Notice Issued Date-Time: 06/09/2019 19:08 Notice Type: Patient Choice Letter Notice Delivered To: Family Member Relationship to Patient: Mother Optical Assistant Name: Delivery Method: PHONE - Phone Valerie Days: Prior Verbal Notification: Yes Recipient Understood Notice: Yes Recipient Signature: Med Rec Note Co-signed by Attending: Coverage Notice Comment: resume [facility] HH resume [facility] Last DP export: 06/23/19 2:36 p Patient Name: SIM LOPEZ Page 58830 at 1321 All edits/amendments must be made on the electronic document DICTATION DATE: 06/24/19 1321 AIRPLANE ELECTRICAL REPAIRER: JAXON 06/24/19 1321 RPT#: [id number] DC DATE:06/23/19 STATUS: DIS IN [facility] [address] [place] [address] END OF REPORT
--- NOTE | 2019-06-24 14:31 | MORECARE ---
CASE MANAGEMENT DISCHARGE SUMMARY PATIENT: SIM LOPEZ JR UNIT: [id number] ADM DATE: 06/06/19 AGE: 59 : 62 SEX: M ROOM/BED: D.2213 AUTHOR: DOROTA,DOC PHYSICIAN: REFERRING PHYSICIAN: YVONNE HOWELL MD DATE OF SERVICE: 06/24/19 Discharge Plan Patient Name: SIM LOPEZ Facility: [facility]:[place] : 1960 Planned Disposition: Home with Home Health Anticipated Discharge Date: Discharge Date: 06/23/2019 Expected LOS: Initial Reviewer: [email or web address] Initial Review Date: 06/06/2019 Generated: 06/24/19 3:30 pm Comments DCP- Discharge Planning Updated by [id number]: Vernell Ravi on 06/23/19 2:[address] DC PLAN: RETURN HOME WITH [facility]. SISTER IS TEACHABLE CG AND AGREED TO STAY WITH PATIENT FOR REQHIRED Q 12 HOUR FLUSHES. CM SPOKE TO ANKIT AT [facility] WHO STATED THEY WILL ACCEPT PATIENT BACK NOW SINCE HE HAS A TEACHABLE CG (HIS SISTER). ANKIT STATED THEY CAN ORDER HIS NS FLUSHES. CM FAXED REFERRAL AND DC INFORMATION TO [phone]. VERNELL RAVI RN, CCM ADDENDUM: [facility] had refused to accept patient back due to no teachable cg to flush drain. They report the mother has dementia and the cg's that work for home instead are not allowed to flush the drain . DCP- Discharge Planning Updated by [email or web address]: Vernell Ravi on 06/23/19 2:[address] DC PLAN: Will need SNF placement for BID Flushes Spoke to patient's mother Amanda Dong [phone], POArtie who gave telephone verbal consent for [facility] and second choice is [facility]. [facility] (P) [phone] (F) [phone]. Faxed referral to [facility], She stated they accept patients over the weekend as well. Referral faxed. Vernell Ravi RN, [facility] DCP- Discharge Planning Updated by [email or web address]: Vernell Ravi on 06/23/19 12:[address] DC PLAN: HOME WITH MOTHER (ZOYA) AND 24/7 CAREGIVERS. SPOKE TO [employer] COMP CLIENT EVALUATOR BENITEZ, . SHE REQUESTED UPDATE BE FAXED TO HER SO SHE COULD GET OP MENTAL HEALTH APPOINTMETN SET UP RECOMMENDED BY DR. KAUFMAN. CM FAXED REQUESTED INFO ALONG WITH DC INFORMATION. CG'S DENIED FURHTER DC NEEDS. VERNELL RAVI RN, [facility] DCP- Discharge Planning Updated by [email or web address]: Laura Ramirez on 06/09/19 5:[address] Patient Name: SIM LOPEZ Admission Status: ER Accout number: [id number] Admission Date: 06-06-2019 : 1960 Admission Diagnosis:SEPSIS, UNSPECIFIED ORGANISM Attending: JESSICA HOWELL Current LOS: 3 Anticipated DC Date: Planned Disposition: HOME W HH, 24HR CARE GIVERS Primary Insurance: MEDICARE A & B Discharge Planning Comments: Patient is currently on vent sedated at this time. CM spoke with patient;s mother Amanda [phone]. Patient lives at home with his mother. Patient has 24 hr caregivers with home instead he also has home health with [facility]. MANISH signed to resume care with both. Patient has a pillowcase maker Benitez that will help assist as needed [phone] she asked for clinicals to be sent. She stated that patient had a spinal injury while at work and she works for [employer]. 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 CM will have to contact patient's mother and make sure it is alright to release information to Benitez fax [phone]. CM will continue to follow and assist as needed with discharge planning / needs. Home Appraiser: Laura Ramirez DCPIA - Discharge Planning Initial Assessment Updated by [email or web address]: Laura Ramirez on 06/09/19 6:53 pm * How many steps to enter\exit or inside your home? * Pharmacy [facility] * Preadmission Environment Home with Family * ADLs Total Dependent * Equipment Power Chair or Electric Scooter * List name and contact numbers for known caregivers / representatives who currently or will assist patient after discharge: AMANDA - MOTHER - [phone] * Verbal permission to speak to the caregivers and representatives has been obtained from the patient. N/A * Community resources currently utilized Private Duty Care * Please name any agencies selected above. [facility] * Additional services required to return to the preadmission environment? No * Can the patient safely return to the preadmission environment? Yes * Has this patient been hospitalized within the prior 30 days at any hospital? No Coverage Notice Reviewer: [id number] Shay Ramirez Notice Issued Date-Time: 06/09/2019 19:08 Notice Type: Patient Choice Letter Notice Delivered To: Family Member Relationship to Patient: Mother Sew On Operator Name: Delivery Method: PHONE - Phone Valerie Days: Prior Verbal Notification: Yes Recipient Understood Notice: Yes Recipient Signature: Med Rec Note Co-signed by Attending: Coverage Notice Comment: resume [facility] HH resume [facility] Last DP export: 06/24/19 12:21 p Patient Name: SIM LOPEZ Page 08887 at 1431 All edits/amendments must be made on the electronic document DICTATION DATE: 06/24/19 1430 GANG MOWER OPERATOR: JAXON 06/24/19 1430 RPT#: [id number] DC DATE:06/23/19 STATUS: DIS IN [facility] [address] [place] [address] END OF REPORT
== END 2019-06-23 17:57 | disposition home health service (06) | DRG 659 ==
LOC: D.ER 15:16 → D.MS 16:57 → D.ICU 16:57 → D.M2 16:57 → D.ICU 06-07 09:28 → D.MS 06-13 18:49
PROVIDERS: Family Medicine; General Practice; Internal Medicine Nephrology; Radiology Diagnostic Radiology; Radiology Vascular & Interventional Radiology; Urology; ADMIT Emergency Medicine; ATTEND Emergency Medicine
PROC: 0BH17EZ Insertion of Endotracheal Airway into Trachea, Via Natural or Artificial Opening (ICD-10-PCS; 2019-06-08)
PROC: 5A1955Z Respiratory Ventilation, Greater than 96 Consecutive Hours (ICD-10-PCS; 2019-06-08)
PROC: 0T903ZZ Drainage of Right Kidney, Percutaneous Approach (ICD-10-PCS; 2019-06-08)
PROC: 0T913ZZ Drainage of Left Kidney, Percutaneous Approach (ICD-10-PCS; 2019-06-08)
PROC: BT111ZZ Fluoroscopy of Right Kidney using Low Osmolar Contrast (ICD-10-PCS; 2019-06-12)
PROC: 0T913ZZ Drainage of Left Kidney, Percutaneous Approach (ICD-10-PCS; 2019-06-16)
PROC: 0TC03ZZ Extirpation of Matter from Right Kidney, Percutaneous Approach (ICD-10-PCS; principal; 2019-06-20 12:45)
PROC: 0T743DZ Dilation of Left Kidney Pelvis with Intraluminal Device, Percutaneous Approach (ICD-10-PCS; 2019-06-23)
PROC: BT121ZZ Fluoroscopy of Left Kidney using Low Osmolar Contrast (ICD-10-PCS; 2019-06-23)
DX: T83.518A Infection and inflammatory reaction due to other urinary catheter, initial encounter (principal); A41.9 Sepsis, unspecified organism; R65.21 Severe sepsis with septic shock; J96.02 Acute respiratory failure with hypercapnia; J96.01 Acute respiratory failure with hypoxia; G93.41 Metabolic encephalopathy; J18.1 Lobar pneumonia, unspecified organism; N17.0 Acute kidney failure with tubular necrosis; J15.6 Pneumonia due to other Gram-negative bacteria; J44.1 Chronic obstructive pulmonary disease with (acute) exacerbation; G82.20 Paraplegia, unspecified; N39.0 Urinary tract infection, site not specified; E87.2 Acidosis; E87.1 Hypo-osmolality and hyponatremia; I44.0 Atrioventricular block, first degree; E87.6 Hypokalemia; I95.9 Hypotension, unspecified; E86.0 Dehydration; N20.0 Calculus of kidney; D50.9 Iron deficiency anemia, unspecified; F41.8 Other specified anxiety disorders; Z85.47 Personal history of malignant neoplasm of testis